=== PATIENT | male | born 1960 | race African-American/Black ===

== ENCOUNTER 2017-09-09 18:50 | Emergency (ER) | payer MEDICARE, MEDICAID ==
[2017-09-09 21:06] LABS: ABS Basophils 0 10^3/ul (0-0.2); ABS Eosinophils 0.2 10^3/ul (0-0.6); ABS Lymphocytes 2.7 10^3/ul (1.0-4.8); ABS Monocytes 0.5 10^3/ul (0-0.8); ABS Neutrophils 2.4 10^3/ul (1.5-7.7); ABS Nucleated RBC 0 10^3/ul; Eosinophil % 4.1 % (0-6); Hematocrit 30 % (42-52); Hemoglobin 9.8 g/dl (14.0-18.0); Mean Corpuscular HGB Conc 32 g/dl (31-36); Mean Corpuscular Hemoglobin 30 pg (27-31); Mean Corpuscular Volume 94 fL (80-94); Mean Platelet Volume 7.1 um3 (7.4-10.4); Nucleated Red Blood Cells % 0.1; Platelet Count 271 10^3/ul (150-450); Red Blood Count 3.25 10^6/ul (4.0-5.4); Red Cell Distribution Width 18 % (10.5-15); White Blood Count 5.8 10^3/ul (3.5-10.8)
[2017-09-09 21:18] LABS: EGFR Non-African American 63.4 (>60)
--- NOTE | 2017-09-10 06:40 | ED ---
Lm Will Rebecca, scribed for Bakari Harris MD on 09/09/17 at 2028 . Psychiatric Complaint - HPI Summary HPI Summary: Pt is a 56 y/o M BIBA who presents to ED requesting a MHE. Pt reports that he called EMS because "I'm psychotic" and that he would like a MHE. Denies hallucinations and SIs. Takes Prozac, Trazodone, Lisinopril, and Naproxen. PMHx bipolar disorder and alcoholism. - History Of Current Complaint Chief Complaint: EDSubstanceAbuse Time Seen by Provider: 09/09/17 20:11 Hx Obtained From: Patient Onset/Duration: Still Present Character: Manic - "I'm psychotic" Aggravating Factor(s): Nothing Alleviating Factor(s): Nothing Associated Signs And Symptoms: Positive: Negative Related History: Positive For: Prior Psychiatric Issues - Bipolar Has Suicidal: Denies: Thoughts Has Homicidal: Denies: Thoughts - Allergies/Home Medications Allergies/Adverse Reactions: Allergies Allergy/AdvReac Type Severity Reaction Status Date / Time allopurinol Allergy See Comment Verified 09/09/17 20:09 Home Medications: Home Medications Unobtainable [Unobtainable] 09/10/17 [History Confirmed 09/10/17] PMH/Surg Hx/FS Hx/Imm Hx Cardiovascular History: Reports: Hx Hypertension Musculoskeletal History: Reports: Hx Gout Psychiatric History: Reports: Hx Bipolar Disorder, Hx Substance Abuse - alcohol Infectious Disease History: No Infectious Disease History: Denies: Traveled Outside the [place] in Last 30 Days - Family History Known Family History: Positive: Unknown - Pt does not know FHx - Social History Alcohol Use: Daily Alcohol Amount: beer/vodka Substance Use Type: Reports: Cocaine, Marijuana Substance Use Comment - Amount & Last Used: marijuana daily, cocaine occ Smoking Status (MU): Light Every Day Tobacco Smoker Review of Systems Negative: Fever Neurological: Other - NEGATIVE: Hallucinations Positive: Other - "psychotic"; NEGATIVE: SIs All Other Systems Reviewed And Are Negative: Yes Physical Exam - Summary Physical Exam Summary: VITAL SIGNS: Reviewed. GENERAL: ~Patient is a well-developed and nourished male who is lying comfortable in the stretcher. Patient is not in any acute respiratory distress. He has alcohol on his breath. HEAD AND FACE: No signs of trauma. No ecchymosis, hematomas or skull depressions. No sinus tenderness. EYES: PERRLA, EOMI x 2, No injected conjunctiva, no nystagmus. EARS: Hearing grossly intact. Ear canals and tympanic membranes are within normal limits. MOUTH: Oropharynx within normal limits. NECK: Supple, trachea is midline, no adenopathy, no JVD, no carotid bruit, no c- spine tenderness, neck with full ROM. CHEST: Symmetric, no tenderness at palpation LUNGS: Clear to auscultation bilaterally. No wheezing or crackles. CVS: Regular rate and rhythm, S1 and S2 present, no murmurs or gallops appreciated. EXTREMITIES: FROM in all major joints, no edema, no cyanosis or clubbing. NEURO: Alert and oriented x 3. No acute neurological deficits. Speech is normal and follows commands. SKIN: Dry and warm Triage Information Reviewed: Yes Vital Signs On Initial Exam: Initial Vitals Temp Pulse Resp BP Pulse Ox 97.8 F 89 16 145/88 100 09/09/17 19:15 09/09/17 19:15 09/09/17 19:15 09/09/17 19:15 09/09/17 19:15 Vital Signs Reviewed: Yes Diagnostics - Vital Signs Vital Signs Temp Pulse Resp BP Pulse Ox 09/09/17 19:15 97.8 F 89 16 145/88 100 - Laboratory Result Diagrams: 09/09/17 20:53 09/09/17 20:53 Lab Statement: Any lab studies that have been ordered have been reviewed, and results considered in the medical decision making process. Course/Dx - Course Assessment/Plan: Pt is a 56 y/o M BIBA who presents to ED requesting a MHE. Pt reports that he called EMS because "I'm psychotic" and that he would like a MHE. Denies hallucinations and SIs. Takes Prozac, Trazodone, Lisinopril, and Naproxen. PMHx bipolar disorder and alcoholism. Blood work was done with results including a serum alcohol of 327. Medically cleared for MHE at 0608. Pt will be signed out to Dr. Salinas, pending dispo, awaiting MHE. Allergy noted. - Differential Dx/Clinical Impression Provider Diagnosis: Alcohol intoxication Discharge - Sign-Out/Discharge Documenting (check all that apply): Sign-Out Patient Signing out patient TO: Drew Salinas - E - Discharge Plan Referrals: No Primary Care Phys,NOPCP [Primary Care Provider] - The documentation as recorded by the Lm christensen Rebecca accurately reflects the service I personally performed and the decisions made by , Bakari Harris MD.
[2017-09-10 08:55] VITALS: BP 159/76
== END 2017-09-10 09:35 | disposition home or self-care (01) ==
LOC: ED 18:50
DX: F10.129 Alcohol abuse with intoxication, unspecified (principal); F17.210 Nicotine dependence, cigarettes, uncomplicated; F31.9 Bipolar disorder, unspecified; I10 Essential (primary) hypertension
CPT/HCPCS: 36415; 80053; 80320; 80329; 84443; 85025; 99283; G0480

== ENCOUNTER 2017-09-19 00:01 | Emergency (ER) | payer MEDICAID, MEDICARE, OTHER ==
[2017-09-19] MEDS ORDERED: Famotidine TAB* 20 MG PO ONE (00:14)
[2017-09-19] MEDS ORDERED: Pantoprazole IV* 40 MG IV ONE (00:14)
[2017-09-19] MEDS ORDERED: Al Hydrox/Mg Hydrox/Simet LIQ* 30 ML UDC PO ONE (00:14)
[2017-09-19] MEDS ORDERED: NS 0.9% 1000 ML* 1,000 ML IV ONE (00:35)
[2017-09-19] MEDS ORDERED: Ondansetron ODT TAB* 4 MG PO ONE (00:36)
--- NOTE | 2017-09-19 00:43 | ED ---
GI/ HPI - HPI Summary HPI Summary: 56-year-old male presents with vomiting today. He states he felt off for the past 18 hours. He states it started after eating [place] from [place]. He denies any diarrhea. He admits to generalized abdominal pain. He's never had this before. He denies any chest pressures or shortness of breath. No sore throat. No headache. No dizziness. Patient drank half bottle of vodka today. History of alcoholism. Patient claims that has had appendix and gallbladder removed. no pain with Urination. Patient states that vomited blood once. he brought his "bag full of blood with him" which in relate has trace amount of streak of pink tinge to it with watery vomit. he states this was the only episode of bloody vomit is what he brought. he denies any cough or coughing up blood. - History of Current Complaint Chief Complaint: EDGIBleed Time Seen by Provider: 09/19/17 00:28 Stated Complaint: VOMITING Pain Intensity: 0 - Allergy/Home Medications Allergies/Adverse Reactions: Allergies Allergy/AdvReac Type Severity Reaction Status Date / Time allopurinol Allergy See Comment Verified 09/09/17 20:09 PMH/Surg Hx/FS Hx/Imm Hx Endocrine/Hematology History: Denies: Hx Anticoagulant Therapy Cardiovascular History: Reports: Hx Hypertension Musculoskeletal History: Reports: Hx Gout Psychiatric History: Reports: Hx Bipolar Disorder, Hx Substance Abuse - alcohol Denies: Hx Eating Disorder, Hx of Violent Episodes Against Others Infectious Disease History: No Infectious Disease History: Denies: Traveled Outside the [place] in Last 30 Days - Family History Known Family History: Positive: None, Unknown - Pt does not know FHx, Other - Social History Alcohol Use: Daily Alcohol Amount: beer/vodka Substance Use Type: Reports: Cocaine, Marijuana Substance Use Comment - Amount & Last Used: marijuana daily, cocaine occ Smoking Status (MU): Light Every Day Tobacco Smoker Review of Systems Negative: Fever Negative: Chest Pain Negative: Shortness Of Breath Positive: Abdominal Pain, Vomiting, Nausea. Negative: Diarrhea All Other Systems Reviewed And Are Negative: Yes Physical Exam Triage Information Reviewed: Yes Vital Signs On Initial Exam: Initial Vitals Temp Pulse Resp BP Pulse Ox 98.3 F 94 18 140/75 98 09/19/17 00:11 09/19/17 00:11 09/19/17 00:11 09/19/17 00:11 09/19/17 00:11 Vital Signs Reviewed: Yes Appearance: Positive: Well-Appearing Skin: Positive: Warm, Dry Head/Face: Positive: Normal Head/Face Inspection Eyes: Positive: Normal, EOMI, CECILIA, Conjunctiva Clear ENT: Positive: Normal ENT inspection, Pharynx normal, TMs normal Respiratory/Lung Sounds: Positive: Clear to Auscultation, Breath Sounds Present Cardiovascular: Positive: Normal, RRR Abdomen Description: Positive: Nontender, Soft Bowel Sounds: Positive: Present Musculoskeletal: Positive: Normal Neurological: Positive: Normal Psychiatric: Positive: Normal Diagnostics - Vital Signs Vital Signs Temp Pulse Resp BP Pulse Ox 09/19/17 00:15 92 140/75 98 09/19/17 00:11 98.3 F 94 18 140/75 98 - Laboratory Result Diagrams: 09/19/17 00:22 09/19/17 00:22 Lab Statement: Any lab studies that have been ordered have been reviewed, and results considered in the medical decision making process. GIGU Course/Dx - Course Course Of Treatment: 56-year-old male presents with vomiting today. He states he felt off for the past 18 hours. He states it started after eating chicken from [place]. He denies any diarrhea. He admits to generalized abdominal pain. He's never had this before. He denies any chest pressures or shortness of breath. No sore throat. No headache. No dizziness. Patient drank half bottle of vodka today. History of alcoholism. Patient claims that has had appendix and gallbladder removed. no pain with Urination. Patient states that vomited blood once. he brought his "bag full of blood with him" which in relate has trace amount of streak of pink tinge to it with watery vomit. he states this was the only episode of bloody vomit is what he brought. he denies any cough or coughing up blood. on exam nontender abdomen. lungs CTA. wbc normal. h/h is same as previous. lipase normal. was only trace amount of blood and vitals stable so will send home. gave does of protonix will send script for such. patient understand and agrees with plan. - Diagnoses Differential Diagnoses - Male: Esophagitis/Gastritis, Gastritis, Gastroenteritis (Viral) Provider Diagnoses: EtOH dependence, Hematemesis Discharge - Sign-Out/Discharge Documenting (check all that apply): Discharge/Admit/Transfer - Discharge Plan Condition: Good Disposition: HOME Patient Education Materials: Hematemesis (ED), Alcohol Dependence (ED) Referrals: [facility] [place] [facility] [Outside] Additional Instructions: Establish care with primary Take omeprazole daily Take maalox every 6 hours as needed for epigastric pain Return to ED if develop any new or worsening symptoms - Billing Disposition and Condition Condition: GOOD Disposition: Home
[2017-09-19 00:46] LABS: ABS Basophils 0.1 10^3/ul (0-0.2); ABS Eosinophils 0.1 10^3/ul (0-0.6); ABS Lymphocytes 1.8 10^3/ul (1.0-4.8); ABS Monocytes 0.5 10^3/ul (0-0.8); ABS Neutrophils 2.4 10^3/ul (1.5-7.7); ABS Nucleated RBC 0 10^3/ul; Eosinophil % 2.9 % (0-6); Hematocrit 30 % (42-52); Hemoglobin 9.8 g/dl (14.0-18.0); Lymphocyte % 36.6 % (25-47); Mean Corpuscular HGB Conc 33 g/dl (31-36); Mean Corpuscular Hemoglobin 31 pg (27-31); Mean Corpuscular Volume 94 fL (80-94); Mean Platelet Volume 7.2 um3 (7.4-10.4); Nucleated Red Blood Cells % 0.2; Platelet Count 245 10^3/ul (150-450); Red Blood Count 3.18 10^6/ul (4.00-5.40); Red Cell Distribution Width 19 % (10.5-15); White Blood Count 4.9 10^3/ul (3.5-10.8)
[2017-09-19 00:47] LABS: EGFR Non-African American 62.2 (>60)
[2017-09-19 01:06] LABS: INR 0.83 (0.77-1.02)
[2017-09-19 03:07] VITALS: BP 146/83
== END 2017-09-19 03:07 | disposition home or self-care (01) ==
LOC: ED 00:01
DX: K92.0 Hematemesis (principal); F10.20 Alcohol dependence, uncomplicated; I10 Essential (primary) hypertension; M10.9 Gout, unspecified; F31.9 Bipolar disorder, unspecified; Z88.8 Allergy status to other drugs, medicaments and biological substances; F17.200 Nicotine dependence, unspecified, uncomplicated
CPT/HCPCS: 36415; 80053; 83690; 85025; 85610; 85730; 86140; 96374; 99283; A9270-GY

== ENCOUNTER 2017-09-29 18:39 | Emergency (ER) | payer OTHER ==
[2017-09-29] MEDS ORDERED: Ketorolac INJ* 60 MG/2 ML VIAL IM ONE (19:23)
[2017-09-29] MEDS ORDERED: Indomethacin CAP* 25 MG CAP PO ONE (19:33)
[2017-09-29 20:06] VITALS: BP 141/91
--- NOTE | 2017-09-29 20:10 | ED ---
Lm Will Rebecca, scribed for Tej Nowak on 09/29/17 at 1930 . Upper Extremity Pain - HPI Summary HPI Summary: Pt is a 56 y/o M who presents to ED c/o L wrist pain which was moderate, ranked 7/10 on triage. No known injury. Sx aggravated by movement, unchanged by Ibuprofen and Tylenol. Also states that he needs a refill of his Lisinopril 25 mg. PMHx gout which he states he currently has in his R knee. - History of Current Complaint Chief Complaint: EDGeneral Stated Complaint: LT WRIST INJURY Time Seen by Provider: 09/29/17 19:18 Hx Obtained From: Patient Onset/Duration: Still Present Severity Currently: Moderate - 7/10 Pain Location: Wrist - Left Aggravating Factor(s): Movement Alleviating Factor(s): Nothing Associated Signs & Symptoms: Positive: Other - Gout in R knee per pt - Allergies/Home Medications Allergies/Adverse Reactions: Allergies Allergy/AdvReac Type Severity Reaction Status Date / Time allopurinol Allergy See Comment Verified 09/29/17 18:47 Home Medications: Home Medications Flexeril 10 MG TAB* 40 mg PO DAILY 09/29/17 [History Confirmed 09/29/17] Lisinopril TAB* [Prinivil TAB 10 MG*] 20 mg PO DAILY 09/29/17 [History Confirmed 09/29/17] traZODone TAB* [Desyrel TAB*] 100 mg PO BEDTIME 09/29/17 [History Confirmed ] PMH/Surg Hx/FS Hx/Imm Hx Endocrine/Hematology History: Denies: Hx Anticoagulant Therapy Cardiovascular History: Reports: Hx Hypertension Musculoskeletal History: Reports: Hx Gout Psychiatric History: Reports: Hx Bipolar Disorder, Hx Substance Abuse - alcohol Denies: Hx Eating Disorder, Hx of Violent Episodes Against Others Infectious Disease History: Unable to Obtain/Confirm Infectious Disease History: Denies: Traveled Outside the [place] in Last 30 Days - Family History Known Family History: Positive: Unknown - Pt does not know FHx - Social History Alcohol Use: Daily Alcohol Amount: beer/vodka Substance Use Type: Reports: Cocaine, Marijuana Substance Use Comment - Amount & Last Used: marijuana daily, cocaine occ Smoking Status (MU): Light Every Day Tobacco Smoker Review of Systems Positive: Other - Ran out of HTN medication Positive: Arthralgia - L wrist pain Positive: Other - Gout in R knee, per pt All Other Systems Reviewed And Are Negative: Yes Physical Exam - Summary Physical Exam Summary: Appearance: Well appearing, no pain distress Skin: warm, dry, reflects adequate perfusion Head/face: normal Eyes: EOMI, CECILIA ENT: normal Neck: supple, non-tender Respiratory: CTA, breath sounds present Cardiovascular: RRR, pulses symmetrical Abdomen: non-tender, soft Bowel: present Musculoskeletal: mild tenderness over the left wrist, strength/ROM intact Neuro: normal, sensory motor intact, A&Ox3 Triage Information Reviewed: Yes Vital Signs On Initial Exam: Initial Vitals Temp Pulse Resp BP Pulse Ox 98.8 F 110 18 134/68 99 09/29/17 18:43 09/29/17 18:43 09/29/17 18:43 09/29/17 18:43 09/29/17 18:43 Vital Signs Reviewed: Yes Diagnostics - Vital Signs Vital Signs Temp Pulse Resp BP Pulse Ox 09/29/17 18:43 98.8 F 110 18 134/68 99 - Laboratory Lab Statement: Any lab studies that have been ordered have been reviewed, and results considered in the medical decision making process. Course/Dx - Course Assessment/Plan: Pt is a 56 y/o M who presents to ED c/o L wrist pain which was moderate, ranked 7/10 on triage. No known injury. Sx aggravated by movement, unchanged by Ibuprofen and Tylenol. Also states that he needs a refill of his Lisinopril 25 mg. PMHx gout which he states he currently has in his R knee. In the ED course, pt was given Toradol and Indocin. Pt does not want any work up including an XR. Wants to be discharged. He will be D/C with Dx of wrist pain and HTN with Rx for Indocin and Prinivil. He understands and agrees. Allergy noted. - Diagnoses Provider Diagnoses: Wrist pain, Hypertension Discharge - Sign-Out/Discharge Documenting (check all that apply): Discharge/Admit/Transfer - Discharge - Discharge Plan Condition: Stable Disposition: HOME Prescriptions: Indomethacin CAP* [Indocin CAP*] 50 mg PO TID PRN #15 cap MDD 3 PRN Reason: Pain Lisinopril [Prinivil TAB 20 mg] 20 mg PO DAILY 30 Days #1 tab Patient Education Materials: Hypertension (ED), Arthralgia (ED) Referrals: No Primary Care Phys,NOPCP [Primary Care Provider] - [facility] [place] [facility] [Outside] - 3 Days Additional Instructions: RETURN TO ED FOR ANY NEW OR WORSENING SYMPTOMS. The documentation as recorded by the Lm christensen Rebecca accurately reflects the service I personally performed and the decisions made by Eliu caba Emmanuel.
== END 2017-09-29 20:05 | disposition home or self-care (01) ==
LOC: ED 18:39
DX: M25.532 Pain in left wrist (principal); I10 Essential (primary) hypertension; F31.9 Bipolar disorder, unspecified; Z72.0 Tobacco use; M10.9 Gout, unspecified
CPT/HCPCS: 96372; 99282; A9270-GY

== ENCOUNTER 2017-10-01 20:43 | Emergency (ER) | payer OTHER ==
[2017-10-01] MEDS ORDERED: Ibuprofen TAB* 800 MG PO ONE (21:29)
--- NOTE | 2017-10-02 00:12 | ED ---
Blake Will Jade, scribed for Bakari Harris MD on 10/01/17 at 2106 . Substance Abuse/Use - HPI Summary HPI Summary: Pt is a 56 y/o male BIBA c/o hand swelling. As per EMS, pt called saying that he needed help. He states that his left hand will not move due to swelling for 3 days. Pt states he has gout, but denies any rheumatoid arthritis. Pt is well known to the ER staff for frequent visits for alcohol intoxication. He states he has only had 2 beers today. Pt currently takes Naproxen. - History Of Current Complaint Chief Complaint: EDSubstanceAbuse Stated Complaint: AMS Time Seen by Provider: 10/01/17 20:53 Hx Obtained From: Patient, EMS Ingestion History: Type/Name Of Drug - Alcohol Timing Of Abuse: Daily Aggravating Factor(s): Nothing Alleviating Factor(s): Nothing Associated Signs And Symptoms: Other: - Swollen hands Related Hx: Prior Drug Abuse Counseling/Admission - Allergies/Home Medications Allergies/Adverse Reactions: Allergies Allergy/AdvReac Type Severity Reaction Status Date / Time allopurinol Allergy See Comment Verified 10/01/17 21:33 PMH/Surg Hx/FS Hx/Imm Hx Endocrine/Hematology History: Denies: Hx Anticoagulant Therapy Cardiovascular History: Reports: Hx Hypertension Musculoskeletal History: Reports: Hx Gout Psychiatric History: Reports: Hx Depression, Hx Bipolar Disorder, Hx Substance Abuse - alcohol Denies: Hx Eating Disorder, Hx of Violent Episodes Against Others Infectious Disease History: No Infectious Disease History: Denies: Traveled Outside the [place] in Last 30 Days - Family History Known Family History: Positive: Unknown - Does not know - Social History Alcohol Use: Daily Alcohol Amount: beer/vodka Substance Use Type: Reports: Cocaine, Marijuana Substance Use Comment - Amount & Last Used: marijuana daily, cocaine occ Smoking Status (MU): Light Every Day Tobacco Smoker Review of Systems Negative: Fever Positive: Edema - Hand swelling All Other Systems Reviewed And Are Negative: Yes Physical Exam - Summary Physical Exam Summary: VITAL SIGNS: Reviewed. GENERAL: Patient is a well-developed and nourished MALE who is lying comfortable in the stretcher. Patient is not in any acute respiratory distress. Pt is intoxicated, and there is alcohol on his breath. HEAD AND FACE: No signs of trauma. No ecchymosis, hematomas or skull depressions. No sinus tenderness. EYES: PERRLA, EOMI x 2, No injected conjunctiva, no nystagmus. EARS: Hearing grossly intact. Ear canals and tympanic membranes are within normal limits. MOUTH: Oropharynx within normal limits. NECK: Supple, trachea is midline, no adenopathy, no JVD, no carotid bruit, no c- spine tenderness, neck with full ROM. CHEST: Symmetric, no tenderness at palpation LUNGS: Clear to auscultation bilaterally. No wheezing or crackles. CVS: Regular rate and rhythm, S1 and S2 present, no murmurs or gallops appreciated. ABDOMEN: Soft, non-tender. No signs of distention. No rebound no guarding, and no masses palpated. Bowel sounds are normal. EXTREMITIES: FROM in all major joints, no edema, no cyanosis or clubbing. NEURO: Alert and oriented x 3. No acute neurological deficits. Speech is normal and follows commands. SKIN: Dry and warm Triage Information Reviewed: Yes Vital Signs On Initial Exam: Initial Vitals Temp Pulse Resp BP Pulse Ox 98.4 F 83 18 133/75 99 10/01/17 20:48 10/01/17 20:48 10/01/17 20:48 10/01/17 20:48 10/01/17 20:48 Vital Signs Reviewed: Yes Diagnostics - Vital Signs Vital Signs Temp Pulse Resp BP Pulse Ox 10/01/17 20:48 98.4 F 83 18 133/75 99 - Laboratory Lab Statement: Any lab studies that have been ordered have been reviewed, and results considered in the medical decision making process. Course/Dx - Course Course Of Treatment: Pt is a 56 y/o male BIBA c/o hand swelling, and states that his left hand will not move due to swelling for 3 days. Pt is well known to the ER staff for frequent visits for alcohol intoxication. A physical exam revealed pt intoxicated, and there is alcohol on his breath. Final dx is alcohol intoxication. Pt found somebody to take him home, and is discharged. He is agreeable with this plan. - Diagnoses Provider Diagnoses: Alcohol intoxication Discharge - Sign-Out/Discharge Documenting (check all that apply): Discharge/Admit/Transfer - Discharge - Discharge Plan Condition: Stable Disposition: HOME Patient Education Materials: Alcohol Intoxication (ED) Referrals: [facility] [place]Outside] - 2 Days Additional Instructions: RETURN TO THE EMERGENCY DEPARTMENT FOR CHANGING OR WORSENING SYMPTOMS The documentation as recorded by the Blake christensen Jade accurately reflects the service I personally performed and the decisions made by me, Bakari Harris MD.
[2017-10-02 00:28] VITALS: BP 142/79
== END 2017-10-02 00:26 | disposition home or self-care (01) ==
LOC: ED 20:43
DX: F10.129 Alcohol abuse with intoxication, unspecified (principal); M10.9 Gout, unspecified; Z88.8 Allergy status to other drugs, medicaments and biological substances
CPT/HCPCS: 36415; 80320; 99284; A9270-GY; G0480

== ENCOUNTER 2017-10-16 02:39 | Emergency (ER) | payer OTHER, MEDICAID ==
--- NOTE | 2017-10-16 03:01 | ED ---
Upper Extremity Pain - HPI Summary HPI Summary: This is amparo Juarez documenting for attending physician Rajan Simmons M.D. Pt is a 56 y/o M BIBA due to UE pain. He states he was watching TV tonight, "doing nothing" and drinking alcohol. He reports onset of right arm pain which eventually went away. He states he has Hx of pain in this arm. However, he began to experience left arm pain afterwards. This concerned him, which prompted EMS call. Pain is rated 5/10 on triage. He denies chest pain but notes some abdominal pain. He denies Hx of MA, has Hx of HTN. Father had diabetes. - History of Current Complaint Stated Complaint: BILATERAL ARM PAIN Time Seen by Provider: 10/16/17 02:59 Hx Obtained From: Patient Mechanism Of Injury: Other - "doing nothing" Onset/Duration: Started Hours Ago - sometime tonight, time not noted by Pt Severity Currently: Moderate - 5/10 Pain Location: Arm - right arm pain, which he states resolved, and left arm pain , Other: - abdominal pain noted Aggravating Factor(s): Nothing Alleviating Factor(s): Nothing - Allergies/Home Medications Allergies/Adverse Reactions: Allergies Allergy/AdvReac Type Severity Reaction Status Date / Time allopurinol Allergy See Comment Verified 10/01/17 21:33 PMH/Surg Hx/FS Hx/Imm Hx Endocrine/Hematology History: Denies: Hx Anticoagulant Therapy Cardiovascular History: Reports: Hx Hypertension Musculoskeletal History: Reports: Hx Gout Psychiatric History: Reports: Hx Depression, Hx Bipolar Disorder, Hx Substance Abuse - alcohol Denies: Hx Eating Disorder, Hx of Violent Episodes Against Others - Family History Known Family History: Positive: Diabetes - father - Social History Alcohol Use: Daily Alcohol Amount: beer/vodka Substance Use Type: Reports: Cocaine, Marijuana Substance Use Comment - Amount & Last Used: marijuana daily, cocaine occ Smoking Status (MU): Light Every Day Tobacco Smoker Review of Systems Negative: Chest Pain Positive: Abdominal Pain Positive: Other - right arm pain which resolved, left arm pain All Other Systems Reviewed And Are Negative: Yes Physical Exam - Summary Physical Exam Summary: Appearance: Well-appearing, Well-nourished, lying in bed comfortably; intoxicated Skin: Warm, dry, no obvious rash Eyes: sclera anicteric, no conjunctival pallor ENT: mucous membranes moist, pharynx appears normal Neck: Supple, nontender Respiratory: Clear to auscultation, no signs of respiratory distress Cardiovascular: Normal S1, S2. No murmurs. Normal distal pulses in tibial and radial bilaterally. Abdomen: Soft, nontender, normal active bowel sounds present Musculoskeletal: Normal, Strength/ROM Intact Neurological: A&Ox3, awake and alert, mentation is normal, speech is fluent and appropriate Psychiatric: affect is normal, does not appear anxious or depressed Triage Information Reviewed: Yes Vital Signs On Initial Exam: Initial Vitals Temp Pulse Resp BP Pulse Ox 97.6 F 85 18 127/88 97 10/16/17 03:42 10/16/17 03:42 10/16/17 03:42 10/16/17 03:42 10/16/17 03:42 Vital Signs Reviewed: Yes Diagnostics - Laboratory Result Diagrams: 10/16/17 03:23 10/16/17 03:23 Lab Statement: Any lab studies that have been ordered have been reviewed, and results considered in the medical decision making process. - EKG 0331 Cardiac Rate: NL - rate of 86 BPM EKG Rhythm: Sinus Rhythm EKG Interpretation: Normal EKG Re-Evaluation - Re-Evaluation First Eval Re-Evaluation Time: 04:40 Comment: Tests and results discussed with Pt, informed they would be likely discharged pending troponin test. Course/Dx - Diagnoses Differential Diagnosis/HQI/PQRI: Positive: Other - ACS Provider Diagnoses: Arm pain, Alcohol intoxication Discharge - Sign-Out/Discharge Documenting (check all that apply): Patient Departure - Discharge Plan Condition: Good Disposition: HOME Patient Education Materials: Chest Pain (ED), Alcohol Intoxication (ED) Referrals: [facility] [Outside] [facility] [place] [facility] [Outside] - 4 Days (PLEASE F/U IN 3-5 DAYS) Additional Instructions: RETURN FOR RETURNING/WORSENING SYMPTOMS - Billing Disposition and Condition Condition: GOOD Disposition: Home
[2017-10-16 03:36] LABS: Hematocrit 31 % (42-52); Hemoglobin 10.3 g/dl (14.0-18.0); Mean Corpuscular HGB Conc 33 g/dl (31-36); Mean Corpuscular Hemoglobin 31 pg (27-31); Mean Corpuscular Volume 95 fL (80-94); Mean Platelet Volume 7.2 um3 (7.4-10.4); Platelet Count 263 10^3/ul (150-450); Red Blood Count 3.28 10^6/ul (4.00-5.40); Red Cell Distribution Width 19 % (10.5-15); White Blood Count 4.5 10^3/ul (3.5-10.8)
[2017-10-16 03:44] LABS: ABS Basophils 0.1 10^3/ul (0-0.2); ABS Eosinophils 0.1 10^3/ul (0-0.6); ABS Monocytes 0.5 10^3/ul (0-0.8); ABS Neutrophils 1.8 10^3/ul (1.5-7.7)
[2017-10-16 03:46] LABS: ABS Nucleated RBC 0 10^3/ul; EGFR Non-African American 62.2 (>60)
[2017-10-16 04:07] LABS: Eosinophil % 2.5 % (0-6); Lymphocyte % 43.9 % (25-47); Nucleated Red Blood Cells % 0
--- NOTE | 2017-10-16 10:12 | ED ---
Progress - Progress Note Progress Note: This is amparo Ordoñez documenting for attending physician Rajan Landon M.D. Pt signed out by Dr. Simmons pending repeat Trop. Re-Evaluation - Re-Evaluation First Eval Re-Evaluation Time: 04:40 Comment: Tests and results discussed with Pt, informed they would be likely discharged pending troponin test. Course/Dx - Course Course Of Treatment: dx: CP and alcohol intoxication. Discharge - Sign-Out/Discharge Documenting (check all that apply): Patient Departure - Discharge Plan Condition: Good Disposition: HOME Patient Education Materials: Alcohol Intoxication (ED), Chest Pain (ED) Referrals: [facility] [Outside] [facility] [place] [facility] [Outside] - 4 Days (PLEASE F/U IN 3-5 DAYS) Additional Instructions: RETURN FOR RETURNING/WORSENING SYMPTOMS
[2017-10-16 10:23] VITALS: BP 126/78
== END 2017-10-16 10:22 | disposition home or self-care (01) ==
LOC: ED 02:39
DX: M79.601 Pain in right arm (principal); F10.129 Alcohol abuse with intoxication, unspecified; I10 Essential (primary) hypertension; Z88.8 Allergy status to other drugs, medicaments and biological substances; M10.9 Gout, unspecified; F31.9 Bipolar disorder, unspecified; Z83.3 Family history of diabetes mellitus; F17.200 Nicotine dependence, unspecified, uncomplicated
CPT/HCPCS: 36415; 80053; 80320; 84484; 85025; 93005; 99284; G0480

== ENCOUNTER 2017-11-10 06:01 | Emergency (ER) | payer OTHER, MEDICAID ==
--- OUTSIDE RECORDS SUMMARY | 2017-11-10 06:31 | XMS REPORT ---
:1960 External Reference #:[id number] Author Organization [email or web address] Address [address] [place] [address] Phone [phone] Care Team Providers Name Role Phone Patient's Choice Primary Care Physician Unavailable Payers Type Date Identification Numbers Payment Provider Subscriber Medicare Primary Policy Number: [id number] Medicare Jose Rodrigues PayID: [id number] [address] [place] [address] [employer] B Policy Number: [id number] Medicaid Jose Rodrigues Group Name: 1 1 [address] PayID: [id number] [place] [address] Problems Date Description Provider Status Onset: 10/19/2017 Screening for malignant neoplasm of colon Jhon Talley MD Active Onset: 10/19/2017 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 Jhon Talley MD Active Onset: 10/19/2017 Gout Jhon Talley MD Active Onset: 10/19/2017 Essential hypertension Jhon Talley MD Active Onset: 10/19/2017 Bipolar disorder Jhon Talley MD Active Onset: 10/19/2017 Alcohol-induced psychosis Jhon Talley MD Active Onset: 10/19/2017 Pain in limb Jhon Talley MD Active Social History Type Date Description Comments Smoking Light tobacco smoker (10 or fewer cigarettes/day) Allergies, Adverse Reactions, Alerts Date Description Reaction Status Severity Comments 10/17/2017 Allopurinol active Medications Medication Date Status Form Strength Qnty SIG Indications Ordering Provider Trazodone HCL Active Tablets 100mg 1 tablet at Unknown /0000 bedtime Lisinopril 00 Active Tablets 20mg 30tab 1 by mouth Jhon /0000 s every day MD Mayank Indomethacin Active Capsules 50mg 1 capsule Unknown /0000 by mouth three times a day as needed Maalox Plus Active Suspension 400-400-4 30 Unknown /0000 0mg/5ML milliliters every 6 hours as needed indigestion , Folic Acid 00 Active Tablets 1mg 1 by mouth Unknown /0000 every day Famotidine 00 Active Tablets 20mg 1 by mouth Unknown /0000 every day Omeprazole Hx Capsules DR 20mg 1 by mouth Unknown /0000 every day - 10/18 Cyclobenzaprine Hx Tablets 10mg 1 tablet by Unknown HCL /0000 mouth q6 - hours 10/18 Vital Signs Date Vital Result Comment 10/19/2017 Height 71 inches 5'11" Weight 162.00 lb Heart Rate 80 /min BP Systolic 143 mmHg Lue average adult cuff BP Diastolic 71 mmHg Lue average adult cuff BP Systolic Sitting 134 mmHg Rue average cuff BP Diastolic Sitting 72 mmHg Rue average cuff Respiratory Rate 16 /min Body Temperature 98.5 F Pain Level 0 O2 % BldC Oximetry 100 % BMI (Body Mass Index) 22.6 kg/m2 Results Description No Information Procedures Description No Information Encounters Type Date Location Provider CPT E/M Dx Office Visit 10/19/2017 9:30a [facility] [place] [address] F10.19 Of [employer] F31.9 I10 M10.9 Z12.11 Plan of Care 10/19/2017 - Jhon Talley MDF10.19 Alcohol abuse with unspecified alcohol-induced disorderComments:Please follow up at [facility] [place] next sunday for Alcohol Addiction therapy. Otherwise a local resource is: [facility] at [address] [place] [id number]. .F31.9 Bipolar disorder, unspecifiedComments:[facility] [place] [address] [facility] [address]. I10 Essential (primary) hypertensionComments:Please continue lisinopril 20mg daily.M10.9 Gout, [id number] Encounter for screening for malignant neoplasm of colonComments:We are giving you a referral to Dr. Montero to get a screening colonoscpy.
--- OUTSIDE RECORDS SUMMARY | 2017-11-10 06:31 | XMS REPORT ---
:1960 External Reference #:[id number] Author Organization [employer] Address [address] [place] [address] Phone [phone] Care Team Providers Name Role Phone Patient's Choice Primary Care Physician Unavailable Payers Type Date Identification Numbers Payment Provider Subscriber Medicare Primary Policy Number: [id number] Medicare Jose Rodrigues PayID: [id number] [address] [place] [address] [employer] Part B Policy Number: [id number] Medicaid Jose Rodrigues Group Name: 1 1 [address] PayID: [id number] [place] [address] Problems Date Description Provider Status Onset: 10/19/2017 [...] CPT E/M Dx Office Visit 10/19/2017 9:30a [facility] [place] [address] F10.19 Of [facility] F31.9 I10 M10.9 Z12.11 Plan of Care Future Appointment(s):12/20/2017 9:30 am - Jhon Talley MD at [facility]10/19/2017 - Jhon Talley MDF10.19 Alcohol abuse with unspecified alcohol-induced disorderComments:Please [place] [facility] [place] for Alcohol Addiction therapy. Otherwise a local resource is: [facility] at [address] [place] [id number]. .F31.9 Bipolar disorder, unspecifiedComments:[facility] [place] [address] [facility] [address]. I10 Essential (primary) hypertensionComments:Please continue lisinopril 20mg daily.M10.9 Gout, [id number] Encounter for screening for malignant neoplasm of colonComments:We are giving you a referral to Dr. Montero to get a screening colonoscpy.
--- NOTE | 2017-11-10 07:09 | ED ---
Abdominal Pain/Male - HPI Summary HPI Summary: Patient presents with right-sided abdominal pain over the past couple of days. He appears intoxicated. He is convoluted in his history however he does essentially report nausea with vomiting 2 times a day and pain is worse when he eats or drinks. History of pancreatitis as well as GERD, possibly with ulcer however he is not sure. Denies hematochezia as well as hematemesis. States his emesis is "clear". Reports he does not eat or drink anything upon initially waking. He does have some fluids as the day goes on and consumes one large meal at the end of the day. He takes medication for GERD as well as blood pressure. He's not sure if his GERD medication helps or not. He does not believe he has a hiatal hernia. He does have issues with joint aches and gout from time to time for which she treats with naproxen however he admits he can't take this daily due to his stomach issues. Denies urinary symptoms and reports alternating constipation with diarrhea which has been going on for years. Furthermore he admits to drinking 4 "tall boys, Natty's that are 8%". If he is "feeling good", he'll proceed to the liquor store and drink vodka. He reports there may be something wrong with his liver but nothing specific he's ever been told. - History of Current Complaint Chief Complaint: Carinain Stated Complaint: ABD PAIN Time Seen by Provider: 11/10/17 06:03 Hx Obtained From: Patient Pain Intensity: 5 - Allergies/Home Medications Allergies/Adverse Reactions: Allergies Allergy/AdvReac Type Severity Reaction Status Date / Time allopurinol Allergy See Comment Verified 10/01/17 21:33 PMH/Surg Hx/FS Hx/Imm Hx Previously Healthy: Yes Endocrine/Hematology History: Denies: Hx Anticoagulant Therapy Cardiovascular History: Reports: Hx Hypertension - lisinopril? Respiratory History: Denies: Hx Asthma, Hx Chronic Obstructive Pulmonary Disease (COPD) GI History: Reports: Hx Gastroesophageal Reflux Disease, Hx Ulcer - possibly has had in past, pt unclear Denies: Hx Cirrhosis, Hx Gall Bladder Disease Musculoskeletal History: Reports: Hx Gout Psychiatric History: Reports: Hx Depression, Hx Bipolar Disorder, Hx Substance Abuse - alcohol Denies: Hx Eating Disorder, Hx of Violent Episodes Against Others Infectious Disease History: No Infectious Disease History: Denies: Traveled Outside the US in Last 30 Days - Family History Known Family History: Positive: None, Unknown - Does not know, Diabetes - father , Other - Social History 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 [employer] Lives: Alone Alcohol Use: Daily Alcohol Amount: 100oz of 8% beer/sometimes vodka Substance Use Type: Reports: Cocaine, Marijuana - "sometimes" Substance Use Comment - Amount & Last Used: marijuana daily, cocaine occ Hx Tobacco Use: Yes - pt states he's a someday smoker Smoking Status (MU): Light Every Day Tobacco Smoker Review of Systems Constitutional: Negative Negative: Fever, Chills, Fatigue Cardiovascular: Negative Negative: Palpitations, Chest Pain Respiratory: Negative Negative: Shortness Of Breath, Cough Positive: Abdominal Pain, Vomiting, Nausea Positive: see HPI Musculoskeletal: Other - generalized aches and pains in joints Skin: Negative Negative: Headache Psychological: Normal All Other Systems Reviewed And Are Negative: Yes Physical Exam Triage Information Reviewed: Yes Vital Signs On Initial Exam: Initial Vitals Temp Pulse Resp BP Pulse Ox 99.0 F 94 20 133/112 99 11/10/17 06:17 11/10/17 06:17 11/10/17 06:17 11/10/17 06:17 11/10/17 06:17 Vital Signs Reviewed: Yes Appearance: Positive: Pain Distress - mild, intermittent - reported as 5/10 - admits if he's distracted it's better, when alone it's worse; appears intoxicated, tangential Skin: Positive: Warm, Skin Color Reflects Adequate Perfusion, Dry - no katharine ecchymosis Head/Face: Positive: Normal Head/Face Inspection - atraumatic Eyes: Positive: Normal, EOMI, Conjunctiva Clear - anicteric sclera ENT: Positive: Hearing grossly normal, Pharynx normal - mucosa dry. Negative: Nasal congestion, Nasal drainage Neck: Positive: Supple Respiratory/Lung Sounds: Positive: Clear to Auscultation, Breath Sounds Present Cardiovascular: Positive: RRR, S1, S2. Negative: Murmur, Rub, Leg Edema Left, Leg Edema Right Abdomen Description: Positive: CVA Tenderness (R), Distended, Hepatomegaly - unable to assess as pt reports pain w/ tympany and light touch in RUQ - no pain in LUQ, Other: - Rt side TTP RUQ and RLQ. Negative: CVA Tenderness (L) Musculoskeletal: Positive: Normal, Strength/ROM Intact Neurological: Positive: Normal, Sensory/Motor Intact, Alert, Oriented to Person Place, Time, CN Intact II-III Psychiatric: Positive: Normal Diagnostics - Vital Signs Vital Signs Temp Pulse Resp BP Pulse Ox 11/10/17 06:24 123/90 11/10/17 06:17 99.0 F 94 20 133/112 99 - Laboratory Result Diagrams: 11/10/17 10:11 11/10/17 10:11 Lab Statement: Any lab studies that have been ordered have been reviewed, and results considered in the medical decision making process. Re-Evaluation - Re-Evaluation First Eval Change: Improved - pt's ab pain and mood improved. He went from appearing intoxicated and communicating curtly to appearing more alert and being very polite and appreciative. He received protonix IV for GERD which he reports he has daily and this may have been contributing to his current ab pain sx. Also replaced his magnesium. His H&H are low however FOBT is neg and this appears to be chronic in nature. His U/S reveals cholelithiasis w/o obstruction although amylase was elevated. Pt was PO road tested w/ fluids and sandwhich - he tolerated well. Suspect amylase is elevated from ETOH and he admits to a h/o pancreatitis however pain was not in this area today and resolved w/o pain medication. Advised to f/u w/ PCP re: chronic issues and to monitor cholelithiasis for exacerbation. He is aware of danger s/sx of when to return to ED. Abdominal Pain Fem Course/Dx - Diagnoses Provider Diagnoses: Abdominal pain, Cholelithiasis, GERD (gastroesophageal reflux disease), Anemia Discharge - Sign-Out/Discharge Documenting (check all that apply): Patient Departure - Discharge Plan Condition: Stable Disposition: HOME Patient Education Materials: Gallstones (ED), Gastroesophageal Reflux Disease ( ED), Anemia (ED) Referrals: [facility] [Outside] Additional Instructions: Increase your prilosec from 20mg to 40mg daily for 2 weeks. After this time, follow-up with your PCP. Call today to schedule follow-up. If symptoms worsen in the meantime or you develop bloody vomiting or dark/bloody stools, return to the ED. Additionally, you were found to have stones in your gallbladder. These do not appear to be blocking your ducts today however this could become an issue in the future. Follow-up with your PCP to discuss non-surgical techniques at treatment. If acute symptoms present, return to ED and/or seek consult with general surgery if they are self-limited. Any reduction in alcohol reduction may reduce your heartburn and fatty liver issues. - Billing Disposition and Condition Condition: STABLE Disposition: Home
[2017-11-10] MEDS ORDERED: Thiamine IV* 100 MG, Folic Acid IV* 1 MG, Multiple Vitamin IV ADULT* 10 ML in NS 0.9% 1... IV ONE ×2 (07:44→08:00)
--- NOTE | 2017-11-10 08:24 | RAD ---
INDICATION: Right-sided abdominal pain. COMPARISON: There are no prior studies available for comparison. TECHNIQUE: Multiple real-time images of the right upper quadrant were obtained. FINDINGS: There are gallstones present. No gallbladder wall thickening or pericholecystic fluid is seen. The patient was tender while scanning over the gallbladder. No intrahepatic ductal distention is seen. The common bile duct was not visualized. The liver is enlarged and increased in echogenicity suggestive of fatty infiltration. No focal abnormality is seen. The pancreas is obscured by overlying bowel gas. The right kidney is normal in size without evidence for hydronephrosis. There is a 2.5 x 3.0 cm right renal cyst. IMPRESSION: 1. CHOLELITHIASIS. 2. HEPATOMEGALY AND FINDINGS SUGGESTIVE OF FATTY INFILTRATION.
[2017-11-10 10:27] LABS: ABS Basophils 0 10^3/ul (0-0.2); ABS Eosinophils 0.1 10^3/ul (0-0.6); ABS Lymphocytes 1.6 10^3/ul (1.0-4.8); ABS Monocytes 0.4 10^3/ul (0-0.8); ABS Neutrophils 2.2 10^3/ul (1.5-7.7); ABS Nucleated RBC 0 10^3/ul; Eosinophil % 1.9 % (0-6); Hematocrit 30 % (42-52); Hemoglobin 9.8 g/dl (14.0-18.0); Lymphocyte % 37.2 % (25-47); Mean Corpuscular HGB Conc 33 g/dl (31-36); Mean Corpuscular Hemoglobin 32 pg (27-31); Mean Corpuscular Volume 96 fL (80-94); Nucleated Red Blood Cells % 0.1; Platelet Count 214 10^3/ul (150-450); Red Blood Count 3.08 10^6/ul (4.00-5.40); Red Cell Distribution Width 18 % (10.5-15); White Blood Count 4.3 10^3/ul (3.5-10.8)
[2017-11-10 10:34] LABS: INR 0.92 (0.77-1.02)
[2017-11-10 10:43] LABS: EGFR Non-African American 50.6 (>60)
[2017-11-10] MEDS ORDERED: Magnesium Sulfate 2 GM IV* 2 GM/50 ML BAG IVPB ONE (10:50)
[2017-11-10] MEDS ORDERED: NS 0.9% 1000 ML* 1,000 ML IV ONE (10:59)
[2017-11-10] MEDS ORDERED: Pantoprazole IV* 40 MG IV ONE (11:36)
[2017-11-10 13:49] VITALS: BP 140/95
== END 2017-11-10 13:48 | disposition home or self-care (01) ==
LOC: ED 06:01
DX: K80.20 Calculus of gallbladder without cholecystitis without obstruction (principal); K21.9 Gastro-esophageal reflux disease without esophagitis; D64.9 Anemia, unspecified; R10.11 Right upper quadrant pain; R16.0 Hepatomegaly, not elsewhere classified; Z88.8 Allergy status to other drugs, medicaments and biological substances; Z72.0 Tobacco use
CPT/HCPCS: 36415; 76705; 80053; 80320; 82140; 82150; 82272; 83605; 83690; 83735; 85025; 85610; 85730; 86140; 96365; 96366; 96375; 99283; G0480; J3411; J3475

== ENCOUNTER 2017-11-30 02:06 | Emergency (ER) | payer OTHER, MEDICAID ==
[2017-11-30] MEDS ORDERED: LORazepam TAB(*) 1 MG PO ONE (02:18)
--- NOTE | 2017-11-30 02:20 | ED ---
Abdominal Pain/Male - HPI Summary HPI Summary: This patient is a 57 year old M BIBA to [facility] with a chief complaint of abd pain that began at 0000. The patient rates the pain 7/10 in severity. Symptoms aggravated by nothing. Symptoms alleviated by nothing. - History of Current Complaint Chief Complaint: EDSubstanceAbuse Stated Complaint: ABD PAIN Hx Obtained From: Patient Onset/Duration: Sudden Onset, Lasting Hours, Still Present Timing: Constant Severity Initially: Moderate Severity Currently: Moderate Pain Intensity: 7 Pain Scale Used: 0-10 Numeric Location: Diffuse Radiates: No Aggravating Factor(s): Nothing Alleviating Factor(s): Nothing - Allergies/Home Medications Allergies/Adverse Reactions: Allergies Allergy/AdvReac Type Severity Reaction Status Date / Time allopurinol Allergy See Comment Verified 10/01/17 21:33 PMH/Surg Hx/FS Hx/Imm Hx Previously Healthy: No Endocrine/Hematology History: Denies: Hx Anticoagulant Therapy Cardiovascular History: Reports: Hx Hypertension - lisinopril? Respiratory History: Denies: Hx Asthma, Hx Chronic Obstructive Pulmonary Disease (COPD) GI History: Reports: Hx Gastroesophageal Reflux Disease, Hx Ulcer - possibly has had in past, pt unclear Denies: Hx Cirrhosis, Hx Gall Bladder Disease Musculoskeletal History: Reports: Hx Gout Psychiatric History: Reports: Hx Depression, Hx Bipolar Disorder, Hx Substance Abuse - alcohol Denies: Hx Eating Disorder, Hx of Violent Episodes Against Others Infectious Disease History: No Infectious Disease History: Denies: Traveled Outside the [place] in Last 30 Days - Family History Known Family History: Positive: None, Unknown - Does not know, Diabetes - father , Other - Social History Occupation: Unemployed Lives: Alone Alcohol Use: Daily Alcohol Amount: 100oz of 8% beer/sometimes vodka Hx Substance Use: No Substance Use Type: Reports: Cocaine, Marijuana - "sometimes" Substance Use Comment - Amount & Last Used: marijuana daily, cocaine occ Hx Tobacco Use: Yes - pt states he's a someday smoker Smoking Status (MU): Light Every Day Tobacco Smoker Review of Systems Negative: Fever Positive: Abdominal Pain All Other Systems Reviewed And Are Negative: Yes Physical Exam - Summary Physical Exam Summary: Appearance: Well-appearing, Well-nourished, lying in bed comfortably. Pt appears intoxicated Skin: Warm, dry, no obvious rash Eyes: sclera anicteric, no conjunctival pallor ENT: mucous membranes moist, pharynx appears normal Neck: Supple, nontender Respiratory: Clear to auscultation, no signs of respiratory distress Cardiovascular: Normal S1, S2. No murmurs. Normal distal pulses in tibial and radial bilaterally. Abdomen: Soft, nontender, normal active bowel sounds present Musculoskeletal: Normal, Strength/ROM Intact Neurological: A&Ox3, awake and alert, mentation is normal, speech is fluent and appropriate Psychiatric: affect is normal, does not appear anxious or depressed Triage Information Reviewed: Yes Vital Signs On Initial Exam: Initial Vitals Temp Pulse Resp BP Pulse Ox 97.5 F 92 18 122/70 95 11/30/17 02:12 11/30/17 02:12 11/30/17 02:12 11/30/17 02:12 11/30/17 02:12 Vital Signs Reviewed: Yes Diagnostics - Vital Signs Vital Signs Temp Pulse Resp BP Pulse Ox 11/30/17 02:12 97.5 F 92 18 122/70 95 - Laboratory Lab Statement: Any lab studies that have been ordered have been reviewed, and results considered in the medical decision making process. Abdominal Pain Fem Course/Dx - Course Course Of Treatment: This is a 57-year-old man who presents with his typical complaint of abdominal pain associated with excessive alcohol intake. Soon after arriving, he elected to go home. Suspicion of any serious intra- abdominal process is quite low given his prior negative workups for the same complaint. There are no significant maladies on his exam other than signs of intoxication. Despite clear intoxication, the patient is awake and alert, he is ambulating without any significant ataxia, gives appropriate answers to questions, and is deemed to be competent to refuse further medical care. Accordingly he will be discharged. - Diagnoses Provider Diagnoses: Alcohol intoxication Discharge - Sign-Out/Discharge Documenting (check all that apply): Patient Departure - Discharge Plan Condition: Fair Disposition: HOME Patient Education Materials: Abuse of Alcohol (ED) Referrals: No Primary Care Phys,NOPCP [Primary Care Provider] - [facility] [Outside] [facility] [Outside] - Billing Disposition and Condition Condition: FAIR Disposition: Home - Attestation Statements Document Initiated by Scribe: Yes Documenting Scribe: Elise Orourke Provider For Whom Scribe is Documenting (Include Credential): Rajan Simmons MD Scribe Attestation: Elise Will, scribed for Rajan Simmons MD on 11/30/17 at 0354.
[2017-11-30] MEDS ORDERED: Lidocaine 2% VISCOUS* 15 ML UDC PO ONE (02:21)
[2017-11-30] MEDS ORDERED: Al Hydrox/Mg Hydrox/Simet LIQ* 30 ML UDC PO ONE (02:21)
[2017-11-30 04:53] VITALS: BP 0/0
== END 2017-11-30 03:45 | disposition left against medical advice (07) ==
LOC: ED 02:06
DX: F10.129 Alcohol abuse with intoxication, unspecified (principal); R10.9 Unspecified abdominal pain; F17.210 Nicotine dependence, cigarettes, uncomplicated
CPT/HCPCS: 99284

== ENCOUNTER 2017-12-02 10:33 | Emergency (ER) | payer OTHER, MEDICAID ==
[2017-12-02] MEDS ORDERED: Famotidine TAB* 20 MG PO ONE (10:38)
[2017-12-02] MEDS ORDERED: Sucralfate TAB* 1 GM PO ONE (10:46)
--- NOTE | 2017-12-02 10:53 | ED ---
Substance Abuse/Use - HPI Summary HPI Summary: Patient is a 57 y/o M w/ c/o abdominal pain onsetting 5 months ago. On triage, he reports N/V as well. In the room, when asked what Sx he is experiencing, he replies, 'nothing new". Patient reports that he was drinking this morning at home, denies drinking last night. He states he currently lives in [place], and not [place]. He states he is "wanted or alive" in [place] and that he owes the state money. PCP is reported to be Dr. Talley. He denies abdominal surgery Hx but states his gallbladder needs to be removed "sooner or later". On RN reassessment, pain is rated 5/10, patient is "unsure" of what aggravates/ alleviates Sx. Home medications and allergies reviewed. Parent from "natural causes". 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 Respiratory History: Denies: Hx Asthma, Hx Chronic Obstructive Pulmonary Disease (COPD) GI History: Reports: Hx Gastroesophageal Reflux Disease, Hx Ulcer - possibly has had in past, pt unclear Denies: Hx Cirrhosis, Hx Gall Bladder Disease Musculoskeletal History: Reports: Hx Gout Psychiatric History: Reports: Hx Depression, Hx Bipolar Disorder, Hx Substance Abuse - alcohol Denies: Hx Eating Disorder, Hx of Violent Episodes Against Others Infectious Disease History: No Infectious Disease History: Denies: Traveled Outside the US in Last 30 Days - Family History Known Family History: Positive: Diabetes - father, Other - parents are reported to have from "natural causes" - Social History Alcohol Use: Daily Alcohol Amount: 100oz of 8% beer/sometimes vodka Hx Substance Use: No Substance Use Type: Reports: Cocaine, Marijuana - "sometimes" Substance Use Comment - Amount & Last Used: marijuana daily, cocaine occ Hx Tobacco Use: Yes - pt states he's a someday smoker Smoking Status (MU): Light Every Day Tobacco Smoker Review of Systems Positive: Other - alcohol intoxication Positive: Abdominal Pain, Vomiting, Nausea All Other Systems Reviewed And Are Negative: Yes Physical Exam - Summary Physical Exam Summary: Appearance: No pain distress; smell of alcohol, intoxicated appearing; clear speech. Skin: warm, dry, reflects adequate perfusion Head/face: normal Eyes: EOMI, CECILIA ENT: normal Neck: supple, non-tender Respiratory: CTA, breath sounds present Cardiovascular: RRR, pulses symmetrical Abdomen: non-tender, soft Bowel Sounds: present Musculoskeletal: normal, strength/ROM intact Neuro: normal, sensory motor intact, A&Ox3 Triage Information Reviewed: Yes Vital Signs On Initial Exam: Initial Vitals Temp Pulse Resp BP Pulse Ox 98.4 F 104 18 140/81 96 12/02/17 10:40 12/02/17 10:40 12/02/17 10:40 12/02/17 10:40 12/02/17 10:40 Vital Signs Reviewed: Yes Diagnostics - Vital Signs Vital Signs Temp Pulse Resp BP Pulse Ox 12/02/17 10:40 98.4 F 104 18 140/81 96 - Laboratory Lab Statement: Any lab studies that have been ordered have been reviewed, and results considered in the medical decision making process. Re-Evaluation - Re-Evaluation First Eval Change: Improved - Patient feels much better with GI treatment Course/Dx - Course Course Of Treatment: Patient with chronic recurring abdominal pain after drinking heavily. He felt much better after GI treatments here. Likely this is a result of chronic gastritis inflamed by his drinking. - Diagnoses Provider Diagnoses: Chronic abdominal pain, Alcoholism, Alcoholic gastritis Discharge - Sign-Out/Discharge Documenting (check all that apply): Patient Departure - discharge - Discharge Plan Condition: Stable Disposition: HOME Prescriptions: Famotidine TAB* [Pepcid 20 MG TAB*] 20 mg PO BID #10 tab Pantoprazole TAB (NF) [Protonix TAB (NF)] 40 mg PO DAILY #30 tab Sucralfate [Carafate] 1 gm PO TID #30 tablet Patient Education Materials: Abuse of Alcohol (ED), Chronic Abdominal Pain (ED) Referrals: [facility] [Outside] [facility] [Outside] No Primary Care Phys,NOPCP [Primary Care Provider] - Additional Instructions: Never drink to excess. Cut back on her drinking. A list of local resources has been provided to you to assist with your drinking. Take prescribed medications for your abdominal discomfort. Return if worse, new symptoms or other concerns. - Billing Disposition and Condition Condition: STABLE Disposition: Home - Attestation Statements Document Initiated by Rosi: Yes Documenting Scribe: Flip Juarez Provider For Whom Rosi is Documenting (Include Credential): Cedric Cho MD Scribe Attestation: Flip Will, scribed for Cedric Cho MD on 12/02/17 at 1239. Scribe Documentation Reviewed: Yes Provider Attestation: The documentation as recorded by the Flip christensen accurately reflects the service I personally performed and the decisions made by Cedric caba MD
[2017-12-02 12:54] VITALS: BP 154/124
== END 2017-12-02 12:53 | disposition home or self-care (01) ==
LOC: ED 10:33
DX: R10.9 Unspecified abdominal pain (principal); G89.29 Other chronic pain; F10.20 Alcohol dependence, uncomplicated; K29.20 Alcoholic gastritis without bleeding; F32.9 Major depressive disorder, single episode, unspecified; K21.9 Gastro-esophageal reflux disease without esophagitis; Z72.0 Tobacco use
CPT/HCPCS: 99282; A9270-GY

== ENCOUNTER 2017-12-03 11:32 | Emergency (ER) | payer OTHER, MEDICAID ==
--- NOTE | 2017-12-03 12:07 | ED ---
Abdominal Pain/Male - HPI Summary HPI Summary: The pt is a 57 y/o male presenting to [facility] c/o diffuse abd pain since 5 months ago worse today. The pain is rated 2/10 in severity. The pt was seen and discharged at [facility] yesterday (12/02/2017) for chronic abdominal pain and Alcohol abuse. As per nurses notes, the pt was drinking a beer on arrival. - History of Current Complaint Chief Complaint: EDAbdPain Stated Complaint: abd pain, substance abuse Time Seen by Provider: 12/03/17 12:01 Hx Obtained From: Patient Hx From Patient Unobtainable Due To: Altered Mental Status - EtOH intoxication Onset/Duration: Gradual Onset, Lasting Weeks - 5 months, Still Present, Worse Since - Today Timing: Constant Severity Currently: Mild Pain Intensity: 2 Pain Scale Used: 0-10 Numeric Location: Diffuse - Allergies/Home Medications Allergies/Adverse Reactions: Allergies Allergy/AdvReac Type Severity Reaction Status Date / Time allopurinol Allergy See Comment Verified 12/03/17 12:27 PMH/Surg Hx/FS Hx/Imm Hx Previously Healthy: No Endocrine/Hematology History: Denies: Hx Anticoagulant Therapy Cardiovascular History: Reports: Hx Hypertension - lisinopril? Respiratory History: Denies: Hx Asthma, Hx Chronic Obstructive Pulmonary Disease (COPD) GI History: Reports: Hx Gastroesophageal Reflux Disease, Hx Ulcer - possibly has had in past, pt unclear Denies: Hx Cirrhosis, Hx Gall Bladder Disease Musculoskeletal History: Reports: Hx Gout Psychiatric History: Reports: Hx Depression, Hx Bipolar Disorder, Hx Substance Abuse - alcohol Denies: Hx Eating Disorder, Hx of Violent Episodes Against Others - Cancer History Cancer Type, Location and Year: None - Surgical History Surgery Procedure, Year, and Place: None Infectious Disease History: No Infectious Disease History: Denies: Traveled Outside the [place] in Last 30 Days - Family History Known Family History: Positive: Diabetes - father, Other - parents are reported to have from "natural causes" - Social History Occupation: Unemployed Lives: Alone Alcohol Use: Daily Alcohol Amount: 100oz of 8% beer/sometimes vodka Hx Substance Use: No Substance Use Type: Reports: Cocaine, Marijuana - "sometimes" Substance Use Comment - Amount & Last Used: marijuana daily, cocaine occ Hx Tobacco Use: Yes - pt states he's a someday smoker Smoking Status (MU): Light Every Day Tobacco Smoker - Additional Comments History Additional Comments: LEVEL 5 CAVEAT: Unable to obtain complete PMx due to AMS . Review of Systems - ROS Summary Review of Systems Summary: LEVEL 5 CAVEAT: Unable to obtain complete ROS due to AMS Positive: Abdominal Pain Positive: Other - Negative: SI/HI All Other Systems Reviewed And Are Negative: Yes Physical Exam - Summary Physical Exam Summary: LEVEL 5 CAVEAT: Unable to obtain complete PE due to AMS . Appearance: The patient is well-nourished in no acute distress and in no acute pain. Skin: The skin is warm and dry and skin color reflects adequate perfusion. HEENT: The head is normocephalic and atraumatic. The pupils are equal and reactive. The conjunctivae are clear and without drainage. Nares are patent and without drainage. Mouth reveals moist mucous membranes and the throat is without erythema and exudate. The external ears are intact. The ear canals are patent and without drainage. The tympanic membranes are intact. Neck: The neck is supple with full range of motion and non-tender. There are no carotid bruits. There is no neck vein distension. Respiratory: Chest is non-tender. Lungs are clear to auscultation and breath sounds are symmetrical and equal. Cardiovascular: Heart is regular rate and rhythm. There is no murmur or rub auscultated. There is no peripheral edema and pulses are symmetrical and equal. Abdomen: The abdomen is soft and non-tender. There are normal bowel sounds heard in all four quadrants and there is no organomegaly palpated. Musculoskeletal: There is no back tenderness noted. Extremities are non-tender with full range of motion. There is good capillary refill. There is no peripheral edema or calf tenderness elicited. Neurological: Patient is alert and oriented to person, place and time. The patient has symmetrical motor strength in all four extremities. Cranial nerves are grossly intact. Deep tendon reflexes are symmetrical and equal in all four extremities. Psychiatric: The patient has an appropriate affect and does not exhibit any anxiety or depression. Triage Information Reviewed: Yes Vital Signs On Initial Exam: Initial Vitals Temp Pulse Resp BP Pulse Ox 98.6 F 117 17 132/84 96 12/03/17 11:44 12/03/17 11:44 12/03/17 11:44 12/03/17 11:44 12/03/17 11:44 Vital Signs Reviewed: Yes Completion Of Physical Exam Limited Due To: Altered Mental Status Diagnostics - Vital Signs Vital Signs Temp Pulse Resp BP Pulse Ox 12/03/17 11:44 98.6 F 117 17 132/84 96 - Laboratory Lab Statement: Any lab studies that have been ordered have been reviewed, and results considered in the medical decision making process. Re-Evaluation - Re-Evaluation First Eval Re-Evaluation Time: 13:02 Change: Improved Comment: The pt notes that he feels better and is ready for discharge. Abdominal Pain Fem Course/Dx - Course Course Of Treatment: Mr. Rodrigues presented to the emergency department drinking a beer and asking for a mental health eval. When I saw him he stated that he has been having abdominal pain on and off for 5 months and that that is the reason he is here. Recent records were reviewed and he was given sucralfate by mouth. He was reevaluated and stated that his pain was completely gone after that and requested discharge. He is clinically sober although he does admit to drinking some this morning. I will give him a prescription for sucralfate and he requests a dose to take home with him now. He is cautioned that if he continues to drink excessively he will continue to have this problem and worse. - Diagnoses Provider Diagnoses: Epigastric abdominal pain Discharge - Sign-Out/Discharge Documenting (check all that apply): Patient Departure - DC - Discharge Plan Condition: Stable Disposition: HOME Prescriptions: Sucralfate SUSP 1 gm PO QID ACHS #200 ml Patient Education Materials: Epigastric Pain (ED) Referrals: No Primary Care Phys,NOPCP [Medical Doctor] - [facility] [Outside] Additional Instructions: Return to ED for any new or worsening symptoms Follow up with your PCP in 3 days - Billing Disposition and Condition Condition: STABLE Disposition: Home - Attestation Statements Document Initiated by Scribe: Yes Documenting Scribe: Loraine Arboleda Provider For Whom Ryanniboliver is Documenting (Include Credential): Dr. Rajan Landon MD Scribe Attestation: Loraine Will scribed for Dr. Rajan Landon MD on 12/03/17 at 2014. Scribe Documentation Reviewed: Yes Provider Attestation: The documentation as recorded by the Loraine christensen accurately reflects the service I personally performed and the decisions made by me, Dr. Rajan Landon MD
[2017-12-03] MEDS ORDERED: Sucralfate TAB* 1 GM PO ONE ×2 (12:10→13:03)
[2017-12-03 13:20] VITALS: BP 124/78
== END 2017-12-03 13:19 | disposition home or self-care (01) ==
LOC: ED 11:32
DX: R10.13 Epigastric pain (principal); F17.210 Nicotine dependence, cigarettes, uncomplicated
CPT/HCPCS: 99282; A9270-GY

== ENCOUNTER 2017-12-10 21:35 | Emergency (ER) | payer OTHER, MEDICAID ==
--- NOTE | 2017-12-10 21:52 | ED ---
Abdominal Pain/Male - History of Current Complaint Chief Complaint: EDAbdPain Stated Complaint: GENERAL ILLNESS Pain Intensity: 5 - Allergies/Home Medications Allergies/Adverse Reactions: Allergies Allergy/AdvReac Type Severity Reaction Status Date / Time allopurinol Allergy See Comment Verified 12/03/17 12:27 PMH/Surg Hx/FS Hx/Imm Hx Previously Healthy: No Endocrine/Hematology History: Denies: Hx Anticoagulant Therapy Cardiovascular History: Reports: Hx Hypertension - lisinopril? Respiratory History: Denies: Hx Asthma, Hx Chronic Obstructive Pulmonary Disease (COPD) GI History: Reports: Hx Gastroesophageal Reflux Disease, Hx Ulcer - possibly has had in past, pt unclear Denies: Hx Cirrhosis, Hx Gall Bladder Disease Musculoskeletal History: Reports: Hx Gout Psychiatric History: Reports: Hx Depression, Hx Bipolar Disorder, Hx Substance Abuse - alcohol Denies: Hx Eating Disorder, Hx of Violent Episodes Against Others - Cancer History Cancer Type, Location and Year: None - Surgical History Surgery Procedure, Year, and Place: None Infectious Disease History: Unable to Obtain/Confirm Infectious Disease History: Denies: Traveled Outside the [place] in Last 30 Days - Family History Known Family History: Positive: Diabetes - father, Other - parents are reported to have from "natural causes" - Social History Alcohol Use: Daily Alcohol Amount: 100oz of 8% beer/sometimes vodka Hx Substance Use: No Substance Use Type: Reports: Cocaine, Marijuana - "sometimes" Substance Use Comment - Amount & Last Used: marijuana daily, cocaine occ Hx Tobacco Use: Yes - pt states he's a someday smoker Smoking Status (MU): Light Every Day Tobacco Smoker Review of Systems Negative: Fever, Chills Negative: Erythema Negative: Sore Throat Negative: Chest Pain Negative: Shortness Of Breath, Cough Negative: Abdominal Pain, Vomiting, Nausea Negative: dysuria, hematuria Negative: Myalgia, Edema Negative: Rash Neurological: Other - no dizziness All Other Systems Reviewed And Are Negative: Yes Physical Exam - Summary Physical Exam Summary: Constitutional: Well-developed, Well-nourished, Alert. (-) Distressed Skin: Warm, Dry HENT: Normocephalic; Atraumatic Eyes: Conjunctiva normal Neck: Musculoskeletal ROM normal neck. (-) JVD, (-) Stridor, (-) Tracheal deviation Cardio: Rhythm regular, rate normal, Heart sounds normal; Intact distal pulses; The pedal pulses are 2+ and symmetric. Radial pulses are 2+ and symmetric. (-) Murmur Pulmonary/Chest wall: Effort normal. (-) Respiratory distress, (-) Wheezes, (-) Rales Abd: Soft, (-) epigastric tenderness, (-) Distension, (-) Guarding, (-) Rebound Musculoskeletal: (-) Edema Lymph: (-) Cervical adenopathy Neuro: Alert, Oriented x3 Psych: Mood and affect Normal Triage Information Reviewed: Yes Vital Signs On Initial Exam: Initial Vitals Temp Pulse Resp BP Pulse Ox 97.6 F 90 18 171/104 99 12/10/17 21:47 12/10/17 21:47 12/10/17 21:47 12/10/17 21:47 12/10/17 21:47 Vital Signs Reviewed: Yes Diagnostics - Vital Signs Vital Signs Temp Pulse Resp BP Pulse Ox 12/10/17 21:47 97.6 F 90 18 171/104 99 - Laboratory Lab Statement: Any lab studies that have been ordered have been reviewed, and results considered in the medical decision making process. Discharge - Discharge Plan Referrals: Jhon Talley MD [Primary Care Provider] - - Attestation Statements Document Initiated by Scribe: Yes Documenting Scribe: Nilo Ordoñez Provider For Whom Scribe is Documenting (Include Credential): Drew Salinas MD Scribe Attestation: Nilo Will, scribed for Drew Salinas MD on 12/10/17 at 2152.
--- NOTE | 2017-12-10 22:01 | ED ---
Psychiatric Complaint - HPI Summary HPI Summary: 57 y/o male BIBErin c/o depression, still present, constant. Sx not aggravated or alleviated by anything. Pt states he "doesn't want to " and came to the ED to "see living people". Pt also states he drinks vodka all the time. - History Of Current Complaint Chief Complaint: EDAbdPain Time Seen by Provider: 12/10/17 21:55 Hx Obtained From: Patient Onset/Duration: Still Present Timing: Constant Character: Depressed Aggravating Factor(s): Nothing Alleviating Factor(s): Nothing - Allergies/Home Medications Allergies/Adverse Reactions: Allergies Allergy/AdvReac Type Severity Reaction Status Date / Time allopurinol Allergy See Comment Verified 12/03/17 12:27 PMH/Surg Hx/FS Hx/Imm Hx Previously Healthy: No Endocrine/Hematology History: Denies: Hx Anticoagulant Therapy Cardiovascular History: Reports: Hx Hypertension - lisinopril? Respiratory History: Denies: Hx Asthma, Hx Chronic Obstructive Pulmonary Disease (COPD) GI History: Reports: Hx Gastroesophageal Reflux Disease, Hx Ulcer - possibly has had in past, pt unclear Denies: Hx Cirrhosis, Hx Gall Bladder Disease Musculoskeletal History: Reports: Hx Gout Psychiatric History: Reports: Hx Depression, Hx Bipolar Disorder, Hx Substance Abuse - alcohol Denies: Hx Eating Disorder, Hx of Violent Episodes Against Others - Cancer History Cancer Type, Location and Year: None - Surgical History Surgery Procedure, Year, and Place: None - Immunization History Immunizations Up to Date: Yes Infectious Disease History: Unable to Obtain/Confirm Infectious Disease History: Denies: Traveled Outside the [place] in Last 30 Days - Family History Known Family History: Positive: Diabetes - father, Other - parents are reported to have from "natural causes" - Social History Alcohol Use: Daily Alcohol Amount: 100oz of 8% beer/sometimes vodka Hx Substance Use: No Substance Use Type: Reports: Cocaine, Marijuana Substance Use Comment - Amount & Last Used: marijuana daily, cocaine occ Hx Tobacco Use: Yes - pt states he's a someday smoker Smoking Status (MU): Light Every Day Tobacco Smoker Review of Systems Negative: Fever, Chills Negative: Erythema Negative: Sore Throat Negative: Chest Pain Negative: Shortness Of Breath, Cough Negative: Abdominal Pain, Vomiting, Nausea Negative: dysuria, hematuria Negative: Myalgia, Edema Negative: Bruising Neurological: Other - no dizziness All Other Systems Reviewed And Are Negative: Yes Physical Exam - Summary Physical Exam Summary: Constitutional: Well-developed, Well-nourished, Alert. (-) Distressed Skin: Warm, Dry HENT: Normocephalic; Atraumatic Eyes: Conjunctiva normal Neck: Musculoskeletal ROM normal neck. (-) JVD, (-) Stridor, (-) Tracheal deviation Cardio: Rhythm regular, rate normal, Heart sounds normal; Intact distal pulses; The pedal pulses are 2+ and symmetric. Radial pulses are 2+ and symmetric. (-) Murmur Pulmonary/Chest wall: Effort normal. (-) Respiratory distress, (-) Wheezes, (-) Rales Abd: Soft, (-) epigastric tenderness, (-) Distension, (-) Guarding, (-) Rebound Musculoskeletal: (-) Edema Lymph: (-) Cervical adenopathy Neuro: Alert, Oriented x3 Psych: Mood and affect Normal Triage Information Reviewed: Yes Vital Signs On Initial Exam: Initial Vitals Temp Pulse Resp BP Pulse Ox 97.6 F 90 18 171/104 99 12/10/17 21:47 12/10/17 21:47 12/10/17 21:47 12/10/17 21:47 12/10/17 21:47 Vital Signs Reviewed: Yes Diagnostics - Vital Signs Vital Signs Temp Pulse Resp BP Pulse Ox 12/10/17 21:47 97.6 F 90 18 171/104 99 - Laboratory Result Diagrams: 12/10/17 22:05 12/10/17 22:05 Lab Statement: Any lab studies that have been ordered have been reviewed, and results considered in the medical decision making process. Course/Dx - Course Assessment/Plan: Pt will be signed out to Dr. Harris pending labs and dispo. - Differential Dx/Clinical Impression Provider Diagnosis: Alcohol intoxication Discharge - Sign-Out/Discharge Documenting (check all that apply): Sign-Out Patient Signing out patient TO: Bakari Harris Receiving patient FROM: Drew Salinas - Discharge Plan Referrals: Jhon Talley MD [Primary Care Provider] - - Attestation Statements Document Initiated by Scribe: Yes Documenting Scribe: Nilo Ordoñez Provider For Whom Scribe is Documenting (Include Credential): Drew Salinas MD Scribe Attestation: Nilo Will scribed for Drew Salinas MD on 12/11/17 at 0013.
[2017-12-10 22:17] LABS: ABS Basophils 0 10^3/ul (0-0.2); ABS Eosinophils 0.1 10^3/ul (0-0.6); ABS Monocytes 0.4 10^3/ul (0-0.8); ABS Neutrophils 2.1 10^3/ul (1.5-7.7); ABS Nucleated RBC 0 10^3/ul; Eosinophil % 1.9 % (0-6); Hematocrit 30 % (42-52); Hemoglobin 9.9 g/dl (14.0-18.0); Lymphocyte % 43.5 % (25-47); Mean Corpuscular HGB Conc 33 g/dl (31-36); Mean Corpuscular Hemoglobin 33 pg (27-31); Mean Corpuscular Volume 99 fL (80-94); Mean Platelet Volume 7.1 um3 (7.4-10.4); Nucleated Red Blood Cells % 0.1; Platelet Count 301 10^3/ul (150-450); Red Blood Count 3.04 10^6/ul (4.00-5.40); Red Cell Distribution Width 18 % (10.5-15); White Blood Count 4.6 10^3/ul (3.5-10.8)
[2017-12-10 22:35] LABS: Urine Appearance Clear; Urine Blood 1+ (Negative); Urine Color Straw; Urine Ketones Negative (Negative); Urine Protein 1+(30 mg/dL) (Negative); Urine Red Blood Cell Trace(0-2/hpf) (Absent); Urine Specific Gravity 1.005 (1.010-1.030); Urine Urobilinogen Negative (Negative); Urine White Blood Cell Absent (Absent)
[2017-12-11] MEDS ORDERED: Famotidine TAB* 20 MG PO ONE (01:12)
[2017-12-11] MEDS ORDERED: Acetaminophen TAB* 325 MG PO ONE ×2 (01:13→06:12)
[2017-12-11] MEDS ORDERED: Ibuprofen TAB* 800 MG PO ONE (02:02)
--- NOTE | 2017-12-11 06:10 | PN ---
ED Flex Patient Progress Note Subjective: This is a 57 year-old M who is pending psychiatric eval secondary to " wants to see living people" . Pt reports he is "going through withdrawal" (ETOH) and knees hurt "I have gout - feels the same". Withdrawal sx include PERDUE, irritability, hot alternating w/ cold, reduced appetite. Denies CP, SOB, ab pain, N/V/D, sweats, tremors, hallucinations. Requested medication for librium - Dr. Harris aware. Pt aware of his anemia and reports "I'm anemic because they (PCP) won't give me a multivitamin - they don't like it when you dx yourself". Denies hematochezia, melena, hematemesis. Objective: Vitals: Most recent vital signs documented below. General: Covering face with arm, lying on stretcher - otherwise NAD, Alert and oriented x3 Heart: rrr, S1/S2, Lungs: CTA, BREATHING EASILY AB: + BS, soft, NTTP INTEG: dry NEURO: no tremor observed PSYCH: interacts well, mild irritability observed but cooperative Laboratory: Current laboratory results documented below. Assessment: 1) ETOH abuse 2) knee pain, h/o gout 3) Anemia, chronic and stable Plan: 1) Pending psychiatric eval. Will follow up daily __while in ED___. Pt concern for withdrawal but does not voice desire for detox tx. No active withdrawal sx at this time - WA protocol and banana bag ordered. Dr. Harris aware of pt's request for benzo's. 2) Uric acid level ordered. In the meantime, acetaminophen ordered (LFT's appear to be able to tolerate this medication at this time). Will refrain from NSAID's d/t anemia. Consider colchicine. 3) Appears to be chronic and stable Vital Signs Temp Pulse Resp BP Pulse Ox 99.7 F 115 20 133/69 94 12/11/17 02:41 12/11/17 02:41 12/11/17 02:41 12/11/17 02:41 12/11/17 02:41 Lab Results - Entire Visit 12/10/17 12/10/17 12/10/17 22:24 22:24 22:05 WBC 4.6 RBC 3.04 L Hgb 9.9 L Hct 30 L MCV 99 H MCH 33 H MCHC 33 RDW 18 H Plt Count 301 MPV 7.1 L Neut % (Auto) 44.6 Lymph % (Auto) 43.5 Evans % (Auto) 9.0 H Eos % (Auto) 1.9 Baso % (Auto) 1.0 Absolute Neuts (auto) 2.1 Absolute Lymphs (auto) 2.0 Absolute Monos (auto) 0.4 Absolute Eos (auto) 0.1 Absolute Basos (auto) 0 Absolute Nucleated RBC 0 Nucleated RBC % 0.1 Sodium Potassium Chloride Carbon Dioxide Anion Gap BUN Creatinine Est GFR ( Amer) Est GFR (Non-Af Amer) BUN/Creatinine Ratio Glucose Calcium Total Bilirubin AST ALT Alkaline Phosphatase Total Protein Albumin Globulin Albumin/Globulin Ratio TSH Urine Color Straw Urine Appearance Clear Urine pH 5.0 Ur Specific [place] 1.005 L Urine Protein 1+(30 mg/dl) A Urine Ketones Negative Urine Blood 1+ A Urine Nitrate Negative Urine Bilirubin Negative Urine Urobilinogen Negative Ur Leukocyte Esterase Negative Urine WBC (Auto) Absent Urine RBC (Auto) Trace(0-2/hpf) Urine Bacteria Absent Urine Glucose Negative Salicylates Urine Opiates Screen None detected Acetaminophen Ur Barbiturates Screen None detected Ur Phencyclidine Scrn None detected Ur Amphetamines Screen None detected U Benzodiazepines Scrn None detected Urine Cocaine Screen Presumptive positive A U Cannabinoids Screen None detected Serum Alcohol 12/10/17 12/10/17 22:05 22:04 WBC RBC Hgb Hct MCV MCH MCHC RDW Plt Count MPV Neut % (Auto) Lymph % (Auto) Evans % (Auto) Eos % (Auto) Baso % (Auto) Absolute Neuts (auto) Absolute Lymphs (auto) Absolute Monos (auto) Absolute Eos (auto) Absolute Basos (auto) Absolute Nucleated RBC Nucleated RBC % Sodium 139 Potassium 4.6 Chloride 106 Carbon Dioxide 22 Anion Gap 11 BUN 21 Creatinine 1.08 Est GFR ( Amer) 84.7 Est GFR (Non-Af Amer) 70.0 BUN/Creatinine Ratio 19.4 Glucose 87 Calcium 9.3 Total Bilirubin 0.30 AST 42 H ALT 26 Alkaline Phosphatase 56 Total Protein 8.1 Albumin 4.5 Globulin 3.6 Albumin/Globulin Ratio 1.3 TSH 1.59 Urine Color Urine Appearance Urine pH Ur Specific [place] Urine Protein Urine Ketones Urine Blood Urine Nitrate Urine Bilirubin Urine Urobilinogen Ur Leukocyte Esterase Urine WBC (Auto) Urine RBC (Auto) Urine Bacteria Urine Glucose Salicylates < 2.50 Urine Opiates Screen Acetaminophen < 15 Ur Barbiturates Screen Ur Phencyclidine Scrn Ur Amphetamines Screen U Benzodiazepines Scrn Urine Cocaine Screen U Cannabinoids Screen Serum Alcohol 224 H
[2017-12-11] MEDS ORDERED: Thiamine IV* 100 MG, Folic Acid IV* 1 MG, Multiple Vitamin IV ADULT* 10 ML in NS 0.9% 1... IV ONE (06:11)
--- NOTE | 2017-12-11 06:47 | ED ---
Progress - Progress Note Progress Note: Patient was signed out to Dr. Bakari Harris via Dr. Drew Salinas, awaiting/ pending disposition at shift change on 12/10/2017 at 2200. - Consult/PCP Time Called: 03:00 Course/Dx - Course Course Of Treatment: A 57 y/o male MIMI presents to ED c/o depression. No laboratory scans were done. Blood work and UA were done. In the ED course, the patient recieved Tylenol, Motrin, Pepcid and Thiamine. After MHE, patient care was discussed with Dr. Awad who recommends discharging patient. Patient jeffrey be discharged with a diagnosis of substance abuse. Patient is to follow up with mental health clinic as needed. Patient is agreeable with this plan. - Diagnoses Provider Diagnoses: Substance abuse Discharge - Sign-Out/Discharge Documenting (check all that apply): Patient Departure - DISCHARGE - Discharge Plan Condition: Stable Disposition: HOME Referrals: Jhon Talley MD [Primary Care Provider] - - Attestation Statements Document Initiated by Scribe: Yes Documenting Scribe: Miguel Cervantes Provider For Whom Rosi is Documenting (Include Credential): Bakari Harris MD Scribe Attestation: Miguel Will, scribed for Bakari Harris MD on 12/11/17 at 0647.
[2017-12-11 06:59] LABS: Uric Acid 11.5 mg/dL (4.4-7.6)
[2017-12-11] MEDS ORDERED: Multivitamins/Minerals TAB PO ONE (07:34)
[2017-12-11] MEDS ORDERED: Colchicine* 0.6 MG TAB PO SCH (08:00)
[2017-12-11] MEDS ORDERED: Colchicine* 0.6 MG TAB PO ONE ×2 (08:00→09:00)
[2017-12-11 09:14] VITALS: BP 131/75
== END 2017-12-11 09:13 | disposition home or self-care (01) ==
LOC: ED 21:35
DX: F10.129 Alcohol abuse with intoxication, unspecified (principal); F17.200 Nicotine dependence, unspecified, uncomplicated; Z88.8 Allergy status to other drugs, medicaments and biological substances
CPT/HCPCS: 36415; 80053; 80307; 80320; 80329; 81003; 81015; 84443; 84550; 85025; 96374; 99285; A9270-GY; G0480; J3411

== ENCOUNTER 2018-02-02 18:38 | Emergency (ER) | payer OTHER, MEDICAID ==
[2018-02-02 18:52] VITALS: BP 137/78
--- NOTE | 2018-02-02 19:03 | ED ---
HPI Chest Pain - HPI Summary HPI Summary: The pt is a 57 y/o male presenting to [facility] c/o midsternal CP for weeks worsened today. The pain rated 4/10 in severity is aggravated by cold air. He notes dyspnea and requests a CXR due to concerns for PNA. He denies a hx of respiratory problems. - History of Current Complaint Chief Complaint: EDChestWallPain Time Seen by Provider: 02/02/18 18:52 Hx Obtained From: Patient Onset/Duration: Started Weeks Ago, Still Present Timing: Constant Current Severity: Mild Pain Intensity: 4 Pain Scale Used: 0-10 Numeric Chest Pain Location: Mid Sternal Character: Dyspnea at Rest Aggravating Factor(s): Other: - Cold air Associated Signs and Symptoms: Positive: Chest Pain. Negative: Fever - Allergy/Home Medications Allergies/Adverse Reactions: Allergies Allergy/AdvReac Type Severity Reaction Status Date / Time allopurinol Allergy See Comment Verified 12/03/17 12:27 PMH/Surg Hx/FS Hx/Imm Hx Previously Healthy: No Endocrine/Hematology History: Denies: Hx Anticoagulant Therapy Cardiovascular History: Reports: Hx Hypertension - lisinopril? Respiratory History: Denies: Hx Asthma, Hx Bronchopulmonary Dysplasia, Hx Chronic Bronchitis, Hx Chronic Obstructive Pulmonary Disease (COPD), Hx Cystic Fibrosis, Hx Lung Cancer , Hx Pleural Effusion, Hx Pneumonia, Hx Pulmonary Edema, Hx Pulmonary Embolism, Hx Seasonal Allergies, Hx Sleep Apnea, Other Respiratory Problems/Disorders GI History: Reports: Hx Gastroesophageal Reflux Disease, Hx Ulcer - possibly has had in past, pt unclear Denies: Hx Cirrhosis, Hx Gall Bladder Disease Musculoskeletal History: Reports: Hx Gout Psychiatric History: Reports: Hx Depression, Hx Bipolar Disorder, Hx Substance Abuse - alcohol Denies: Hx Eating Disorder, Hx of Violent Episodes Against Others - Cancer History Cancer Type, Location and Year: None - Surgical History Surgery Procedure, Year, and Place: None Infectious Disease History: No Infectious Disease History: Denies: Traveled Outside the [place] in Last 30 Days - Family History Known Family History: Positive: Diabetes - father, Other - parents are reported to have from "natural causes" - Social History Occupation: Unemployed Lives: Alone Alcohol Use: Daily Alcohol Amount: 100oz of 8% beer/sometimes vodka Hx Substance Use: No Substance Use Type: Reports: Cocaine, Marijuana Substance Use Comment - Amount & Last Used: marijuana daily, cocaine occ Hx Tobacco Use: Yes - pt states he's a someday smoker Smoking Status (MU): Light Every Day Tobacco Smoker Review of Systems Negative: Fever Positive: Chest Pain Positive: Other - Positive: Dyspnea All Other Systems Reviewed And Are Negative: Yes Physical Exam - Summary Physical Exam Summary: Appearance: The patient is well-nourished in no acute respiratory distress and in no acute pain. Skin: The skin is warm and dry and skin color reflects adequate perfusion. HEENT: The head is normocephalic and atraumatic. The pupils are equal and reactive. The conjunctivae are clear and without drainage. Nares are patent and without drainage. Mouth reveals moist mucous membranes and the throat is without erythema and exudate. The external ears are intact. The ear canals are patent and without drainage. The tympanic membranes are intact. Neck: The neck is supple with full range of motion and non-tender. There are no carotid bruits. There is no neck vein distension. Respiratory: Chest is non-tender. Lungs are clear to auscultation and breath sounds are symmetrical and equal. Cardiovascular: Heart is regular rate and rhythm. There is no murmur or rub auscultated. There is no peripheral edema and pulses are symmetrical and equal. Abdomen: The abdomen is soft and non-tender. There are normal bowel sounds heard in all four quadrants and there is no organomegaly palpated. Musculoskeletal: There is no back tenderness noted. Extremities are non-tender with full range of motion. There is good capillary refill. There is no peripheral edema or calf tenderness elicited. Neurological: Patient is alert and oriented to person, place and time. The patient has symmetrical motor strength in all four extremities. Cranial nerves are grossly intact. Deep tendon reflexes are symmetrical and equal in all four extremities. Psychiatric: The patient has an appropriate affect and does not exhibit any anxiety or depression. Triage Information Reviewed: Yes Vital Signs On Initial Exam: Initial Vitals Temp Pulse Resp BP Pulse Ox 98.1 F 95 16 137/78 100 02/02/18 18:49 02/02/18 18:49 18 18:49 02/02/18 18:49 02/02/18 18:49 Vital Signs Reviewed: Yes Diagnostics - Vital Signs Vital Signs Temp Pulse Resp BP Pulse Ox 02/02/18 18:49 98.1 F 95 16 137/78 100 - Laboratory Lab Statement: Any lab studies that have been ordered have been reviewed, and results considered in the medical decision making process. - Radiology CXR Radiology Interpretation Completed By: ED Physician - IMPRESSION: This is a normal CXR Chest Pain Course/Dx - Course Course Of Treatment: Mr. Rodrigues presented with a chief complaint of pain in his sternum. He was requesting a chest x-ray and was frankly unwilling to entertain my questions or recommendations. He was concerned that he had walking pneumonia. His vitals were stable and a chest x-ray was obtained which was negative for any acute change. He was satisfied with that and requested discharge. He admitted to drinking earlier however he was clinically sober with a saw him. - Diagnoses Provider Diagnoses: Chest pain Discharge - Sign-Out/Discharge Documenting (check all that apply): Patient Departure - DC - Discharge Plan Condition: Stable Disposition: HOME Patient Education Materials: Chest Pain (ED) Referrals: Jhon Talley MD [Primary Care Provider] - Additional Instructions: Follow up with your PCP in 2-3 days Return to ED for any new or worsening symptoms - Billing Disposition and Condition Condition: STABLE Disposition: Home - Attestation Statements Document Initiated by Scribe: Yes Documenting Scribe: Loraine Arboleda Provider For Whom Scribe is Documenting (Include Credential): Dr. Rajan Landon MD Scribe Attestation: Loraine Will scribed for Dr. Rajan Landon MD on 02/02/18 at 2043. Scribe Documentation Reviewed: Yes Provider Attestation: The documentation as recorded by the Loraine christensen accurately reflects the service I personally performed and the decisions made by me, Dr. Rajan Landon MD
--- NOTE | 2018-02-03 08:46 | RAD ---
INDICATION: Chest pain COMPARISON: Chest x-ray dated December 30, 2012 TECHNIQUE: PA and lateral views of the chest were obtained. FINDINGS: The heart and mediastinum are normal in size and contour. Similar to the prior chest x-ray there is asymmetric elevation of the left hemidiaphragm. Beneath the left hemidiaphragm there are multiple gas-filled loops of colon. Lungs are otherwise grossly clear. There is no evidence of large pleural effusion. Visualized bones are normal for the patient's age. There is no radiographic evidence of free air beneath the diaphragm IMPRESSION: PERSISTENT ASYMMETRIC ELEVATION OF THE LEFT HEMIDIAPHRAGM NOT CHANGED SIGNIFICANTLY SINCE AT LEAST 2012 CHEST X-RAY. THOUGH NOT PATHOLOGICALLY DILATED THERE ARE MULTIPLE AIR-FILLED LOOPS OF BOWEL WITHIN THE LEFT HEMIDIAPHRAGM. PLEASE CORRELATE TO GASTROINTESTINAL SYMPTOMS. R2
== END 2018-02-02 20:10 | disposition home or self-care (01) ==
LOC: ED 18:38
DX: R07.89 Other chest pain (principal); Z88.8 Allergy status to other drugs, medicaments and biological substances; Z72.0 Tobacco use
CPT/HCPCS: 71046; 99282

== ENCOUNTER 2018-03-07 18:20 | Emergency (ER) | payer OTHER, MEDICAID ==
--- NOTE | 2018-03-07 18:57 | ED ---
Substance Abuse/Use - HPI Summary HPI Summary: Pt is a 57 y/o male who presents to the ED c/o intoxication. He was at [facility] for a voluntary alcohol detox initially, but he changed his mind. Pt smells of alcohol and marijuana. He states that he hasnt had alcohol in 4 hours. Pt also notes 7 pattie in his head, put there 2 days ago, and he requests for them to be removed. He denies any CP or SOB. PMHx bipolar disorder, depression, and alcohol abuse. - History Of Current Complaint Chief Complaint: EDSubstanceAbuse Stated Complaint: ETOH Time Seen by Provider: 03/07/18 18:48 Hx Obtained From: Patient Ingestion History: Type/Name Of Drug - Alcohol Timing Of Abuse: Daily Character: Stuporous Aggravating Factor(s): Nothing Alleviating Factor(s): Nothing Associated Signs And Symptoms: Negative - Allergies/Home Medications Allergies/Adverse Reactions: Allergies Allergy/AdvReac Type Severity Reaction Status Date / Time allopurinol Allergy See Comment Verified 12/03/17 12:27 PMH/Surg Hx/FS Hx/Imm Hx Endocrine/Hematology History: Denies: Hx Anticoagulant Therapy Cardiovascular History: Reports: Hx Hypertension - lisinopril? Respiratory History: Denies: Hx Asthma, Hx Bronchopulmonary Dysplasia, Hx Chronic Bronchitis, Hx Chronic Obstructive Pulmonary Disease (COPD), Hx Cystic Fibrosis, Hx Lung Cancer , Hx Pleural Effusion, Hx Pneumonia, Hx Pulmonary Edema, Hx Pulmonary Embolism, Hx Seasonal Allergies, Hx Sleep Apnea, Other Respiratory Problems/Disorders GI History: Reports: Hx Gastroesophageal Reflux Disease, Hx Ulcer - possibly has had in past, pt unclear Denies: Hx Cirrhosis, Hx Gall Bladder Disease Musculoskeletal History: Reports: Hx Gout Psychiatric History: Reports: Hx Depression, Hx Bipolar Disorder, Hx Substance Abuse - alcohol Denies: Hx Eating Disorder, Hx of Violent Episodes Against Others - Cancer History Cancer Type, Location and Year: None - Surgical History Surgery Procedure, Year, and Place: None Infectious Disease History: Unable to Obtain/Confirm Infectious Disease History: Denies: Traveled Outside the [place] in Last 30 Days - Family History Known Family History: Positive: Diabetes - father - Social History Alcohol Use: Daily Alcohol Amount: 100oz of 8% beer/sometimes vodka Hx Substance Use: Yes Substance Use Type: Reports: Cocaine, Marijuana Substance Use Comment - Amount & Last Used: crack cocaine Hx Tobacco Use: Yes - pt states he's a someday smoker Smoking Status (MU): Light Every Day Tobacco Smoker Review of Systems Negative: Fever Positive: Other - alcohol intoxication All Other Systems Reviewed And Are Negative: Yes Physical Exam - Summary Physical Exam Summary: VITAL SIGNS: Reviewed. GENERAL: Patient is a well-developed and nourished MALE who is lying comfortable in the stretcher. Patient is not in any acute respiratory distress. Patient smells of alcohol on his breath. HEAD AND FACE: No signs of trauma. No ecchymosis, hematomas or skull depressions. No sinus tenderness. EYES: PERRLA, EOMI x 2, No injected conjunctiva, no nystagmus. EARS: Hearing grossly intact. Ear canals and tympanic membranes are within normal limits. MOUTH: Oropharynx within normal limits. NECK: Supple, trachea is midline, no adenopathy, no JVD, no carotid bruit, no c- spine tenderness, neck with full ROM. CHEST: Symmetric, no tenderness at palpation LUNGS: Clear to auscultation bilaterally. No wheezing or crackles. CVS: Regular rate and rhythm, S1 and S2 present, no murmurs or gallops appreciated. ABDOMEN: Soft, non-tender. No signs of distention. No rebound no guarding, and no masses palpated. Bowel sounds are normal. EXTREMITIES: FROM in all major joints, no edema, no cyanosis or clubbing. NEURO: Alert and oriented x 3. No acute neurological deficits. Speech is normal and follows commands. SKIN: Dry and warm Triage Information Reviewed: Yes Vital Signs On Initial Exam: Initial Vitals Temp Pulse Resp BP Pulse Ox 98.4 F 103 18 154/88 97 03/07/18 18:24 03/07/18 18:24 03/07/18 18:24 03/07/18 18:24 03/07/18 18:24 Vital Signs Reviewed: Yes Diagnostics - Vital Signs Vital Signs Temp Pulse Resp BP Pulse Ox 03/07/18 18:24 98.4 F 103 18 154/88 97 - Laboratory Result Diagrams: 03/07/18 19:27 03/07/18 19:27 Lab Statement: Any lab studies that have been ordered have been reviewed, and results considered in the medical decision making process. Course/Dx - Course Assessment/Plan: Pt is a 57 y/o male who presents to the ED c/o intoxication. He was at [facility] for a voluntary alcohol detox initially , but he changed his mind. Pt smells of alcohol and marijuana. He states that he hasnt had alcohol in 4 hours. Pt also notes 7 pattie in his head, put there 2 days ago, and he requests for them to be removed. He denies any CP or SOB. PMHx bipolar disorder, depression, and alcohol abuse. Blood work without any significant abnormality except for chronic anemia. Alcohol level is 328. Patient is sleeping comfortable in the stretcher. The patient will be signed out to Dr. Harris at shift change. - Diagnoses Provider Diagnoses: Alcohol intoxication Discharge - Sign-Out/Discharge Documenting (check all that apply): Sign-Out Patient Signing out patient TO: Bakari Harris - Discharge Plan Condition: Stable Disposition: HOME Patient Education Materials: Alcohol Intoxication (ED) Referrals: Jhon Talley MD [Primary Care Provider] - 2 Days Additional Instructions: RETURN TO THE EMERGENCY DEPARTMENT FOR NEW OR WORSENING SYMPTOMS - Attestation Statements Document Initiated by Ryannibe: Yes Documenting Scribe: Huma Lozano Provider For Whom Rosi is Documenting (Include Credential): Josué Love MD Scribe Attestation: IHuma, scribed for Josué Love MD on 03/08/18 at 2123. Scribe Documentation Reviewed: Yes Provider Attestation: The documentation as recorded by the scribeHuma accurately reflects the service I personally performed and the decisions made by me, Josué Love MD Status of Scribe Document: Viewed
[2018-03-07 19:38] LABS: Hematocrit 28 % (42-52); Hemoglobin 9.2 g/dl (14.0-18.0); Mean Corpuscular HGB Conc 33 g/dl (31-36); Mean Corpuscular Hemoglobin 32 pg (27-31); Mean Corpuscular Volume 98 fL (80-94); Mean Platelet Volume 7.3 fL (7.4-10.4); Platelet Count 214 10^3/ul (150-450); Red Blood Count 2.87 10^6/ul (4.00-5.40); Red Cell Distribution Width 18 % (10.5-15); White Blood Count 6.2 10^3/ul (3.5-10.8)
[2018-03-07 19:53] LABS: EGFR Non-African American 69.2 (>60)
[2018-03-07 20:17] LABS: ABS Basophils 0 10^3/ul (0-0.2); ABS Eosinophils 0.1 10^3/ul (0-0.6); ABS Lymphocytes 1.5 10^3/ul (1.0-4.8); ABS Monocytes 0.8 10^3/ul (0-0.8); ABS Neutrophils 3.9 10^3/ul (1.5-7.7); ABS Nucleated RBC 0 10^3/ul; Eosinophil % 1.6 %; Lymphocyte % 23.3 %; Nucleated Red Blood Cells % 0.2
[2018-03-07 21:32] LABS: Urine Appearance Clear; Urine Blood 1+ (Negative); Urine Color Yellow; Urine Ketones Negative (Negative); Urine Protein 1+(30 mg/dL) (Negative); Urine Red Blood Cell Trace(0-2/hpf) (Absent); Urine Specific Gravity 1.008 (1.010-1.030); Urine Urobilinogen Negative (Negative); Urine White Blood Cell Trace(0-5/hpf) (Absent)
--- NOTE | 2018-03-08 04:49 | ED ---
Progress - Progress Note Progress Note: Patient was signed out from Dr. Love upon shift change pending sobriety Course/Dx - Course Course Of Treatment: Patient was signed out from Dr. Love upon shift change pending sobriety. Patient will be discharge home with follow up with PCP. Patient is agreeable with this plan. - Diagnoses Provider Diagnoses: Alcohol intoxication Discharge - Sign-Out/Discharge Documenting (check all that apply): Patient Departure - Discharge home, Receiving Sign-Out Receiving patient FROM: Josué Love - Upon shift change pending sobriety - Discharge Plan Condition: Stable Disposition: HOME Patient Education Materials: Alcohol Intoxication (ED) Referrals: Jhon Talley MD [Primary Care Provider] - 2 Days Additional Instructions: RETURN TO THE EMERGENCY DEPARTMENT FOR NEW OR WORSENING SYMPTOMS - Attestation Statements Document Initiated by Scribe: Yes Documenting Scribe: Elise Orourke Provider For Whom Scribe is Documenting (Include Credential): Dr. Bakari Harris MD Scribe Attestation: I, Elise Orourke, scribed for Dr. Bakari Harris MD on 03/08/18 at 0611. Status of Scribe Document: Ready
[2018-03-08 06:20] VITALS: BP 181/97
== END 2018-03-08 06:20 | disposition home or self-care (01) ==
LOC: ED 18:20
DX: F10.120 Alcohol abuse with intoxication, uncomplicated (principal); Z88.8 Allergy status to other drugs, medicaments and biological substances; Z72.0 Tobacco use
CPT/HCPCS: 36415; 80053; 80307; 80320; 80329; 81003; 81015; 84443; 85025; 87086; 99283; G0480

== ENCOUNTER 2018-03-09 19:42 | Emergency (ER) | payer OTHER, MEDICAID ==
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
--- NOTE | 2018-03-09 23:55 | PN ---
Progress Note - Progress Note Date of Service: 03/09/18 Note: Excepted sign out by Desire Landa at 11:15 PM on 03/09/18 Patient awoke at 11:30 PM, requesting discharge. He denies any pain currently. He is ambulating well and taking PO intake. Volar splint applied. [place] removed. Patient is discharged in good condition. Lungs CTA, RRR. Disposition: Home Condition: Good
[2018-03-10 00:50] VITALS: BP 133/75
== END 2018-03-10 00:44 | disposition home or self-care (01) ==
LOC: ED 19:42
DX: S52.502A Unspecified fracture of the lower end of left radius, initial encounter for closed fracture (principal); Z48.02 Encounter for removal of sutures; X58.XXXA Exposure to other specified factors, initial encounter; Y92.9 Unspecified place or not applicable; R60.0 Localized edema; F10.129 Alcohol abuse with intoxication, unspecified; F17.210 Nicotine dependence, cigarettes, uncomplicated
CPT/HCPCS: 99284

== ENCOUNTER 2018-03-15 23:41 | Emergency (ER) | payer OTHER, MEDICAID ==
--- NOTE | 2018-03-15 23:51 | ED ---
Complex/Multi-Sys Presentation - HPI Summary HPI Summary: 57 year old M brought in by ambulance to [facility] complains of right shoulder pain s/p falling out of bed since two hours ago. The patient rates the pain 8/10 in severity. Symptoms aggravated by nothing. Symptoms alleviated by nothing. Patient is also intoxicated. - History Of Current Complaint Hx Obtained From: Patient Onset/Duration: Lasting Hours - 2, Still Present Timing: Constant Aggravating Factor(s): Nothing Alleviating Factor(s): Nothing Associated Signs And Symptoms: Positive: Other - intoxication - Allergies/Home Medications Allergies/Adverse Reactions: Allergies Allergy/AdvReac Type Severity Reaction Status Date / Time allopurinol Allergy See Comment Verified 12/03/17 12:27 PMH/Surg Hx/FS Hx/Imm Hx Previously Healthy: No Endocrine/Hematology History: Denies: Hx Anticoagulant Therapy Cardiovascular History: Reports: Hx Hypertension - lisinopril? Respiratory History: Denies: Hx Asthma, Hx Bronchopulmonary Dysplasia, Hx Chronic Bronchitis, Hx Chronic Obstructive Pulmonary Disease (COPD), Hx Cystic Fibrosis, Hx Lung Cancer , Hx Pleural Effusion, Hx Pneumonia, Hx Pulmonary Edema, Hx Pulmonary Embolism, Hx Seasonal Allergies, Hx Sleep Apnea, Other Respiratory Problems/Disorders GI History: Reports: Hx Gastroesophageal Reflux Disease, Hx Ulcer - possibly has had in past, pt unclear Denies: Hx Cirrhosis, Hx Gall Bladder Disease Musculoskeletal History: Reports: Hx Gout Psychiatric History: Reports: Hx Depression, Hx Bipolar Disorder, Hx Substance Abuse - alcohol Denies: Hx Eating Disorder, Hx of Violent Episodes Against Others - Cancer History Cancer Type, Location and Year: None - Surgical History Surgery Procedure, Year, and Place: None Infectious Disease History: Denies: Traveled Outside the [place] in Last 30 Days - Family History Known Family History: Positive: Diabetes - father - Social History Alcohol Use: Daily Alcohol Amount: 100oz of 8% beer/sometimes vodka Hx Substance Use: Yes Substance Use Type: Reports: Cocaine, Marijuana Substance Use Comment - Amount & Last Used: crack cocaine Hx Tobacco Use: Yes - pt states he's a someday smoker Smoking Status (MU): Light Every Day Tobacco Smoker Review of Systems Positive: Other - right shoulder pain Psychological: Other - intoxicated All Other Systems Reviewed And Are Negative: Yes Physical Exam - Summary Physical Exam Summary: Appearance: Appears intoxicated Skin: Warm, dry, no obvious rash Eyes: sclera anicteric, no conjunctival pallor ENT: mucous membranes moist Neck: deferred Respiratory: No signs of respiratory distress Cardiovascular: Appears well perfused, pulses are nml Abdomen: deferred Musculoskeletal: Patient is moving his shoulder quite well. There are no external signs of injury Neurological: Awake and alert, mentation is normal, speech is fluent and appropriate Psychiatric: affect is normal, does not appear anxious or depressed Triage Information Reviewed: Yes Vital Signs Reviewed: Yes Diagnostics - Laboratory Lab Statement: Any lab studies that have been ordered have been reviewed, and results considered in the medical decision making process. - Radiology Shoulder Radiology Interpretation Completed By: ED Physician Summary of Radiographic Findings: Normal. Pending official report. Complex Multi-Symp Course/Dx Course Of Treatment: 57 year old M brought in by ambulance to [facility] complains of right shoulder pain s/p falling out of bed since two hours ago. Patient reports is also intoxicated. Shoulder x-ray was normal. Patient was given Ativan in ED course. He will be discharged once sober. Discussed discharge plan with patient who is now sober. He was given follow up instructions and told to return to ED for new or worsening symptoms. He is agreeable to discharge. - Diagnoses Provider Diagnoses: Alcohol intoxication Discharge - Sign-Out/Discharge Documenting (check all that apply): Patient Departure - Discharge - Discharge Plan Condition: Improved Disposition: HOME Patient Education Materials: Alcohol Intoxication (ED), Abuse of Alcohol (ED) Referrals: Jhon Talley MD [Primary Care Provider] - If Needed - Attestation Statements Document Initiated by Scribe: Yes Documenting Scribe: Jacqui Mcqueen Provider For Whom Scribe is Documenting (Include Credential): Rajan Simmons MD Scribe Attestation: Jacqui Will, scribed for Rajan Simmons MD on 03/16/18 at 0626. Status of Scribe Document: Ready
[2018-03-16] MEDS ORDERED: LORazepam TAB(*) 1 MG PO ONE (01:13)
[2018-03-16 06:33] VITALS: BP 144/86
--- NOTE | 2018-03-16 18:56 | ED ---
Progress - Progress Note Progress Note: Patient's final x-ray read reveals osteoarthritis as well as narrowing of the acromiohumeral interval suggestive of chronic rotator cuff injury no acute osseous injury. Patient was diagnosed with a "normal" shoulder x-ray. Attempted to contact patient to update results however treatment plan may not change. Unable to leave message as his phone number is not working. Will mail letter to update results. Carmelo gastelum aware. Course/Dx - Course Course Of Treatment: 57 year old M brought in by ambulance to [facility] complains of right shoulder pain s/p falling out of bed since two hours ago. Patient reports is also intoxicated. Shoulder x-ray was normal. Patient was given Ativan in ED course. He will be discharged once sober. Discussed discharge plan with patient who is now sober. He was given follow up instructions and told to return to ED for new or worsening symptoms. He is agreeable to discharge. - Diagnoses Provider Diagnoses: Alcohol intoxication Discharge - Sign-Out/Discharge Documenting (check all that apply): Post-Discharge Follow Up - Discharge Plan Condition: Improved Disposition: HOME Patient Education Materials: Alcohol Intoxication (ED), Abuse of Alcohol (ED) Referrals: Jhon Talley MD [Primary Care Provider] - If Needed - Billing Disposition and Condition Condition: IMPROVED Disposition: Home
== END 2018-03-16 06:32 | disposition home or self-care (01) ==
LOC: ED 23:41
DX: F10.120 Alcohol abuse with intoxication, uncomplicated (principal); M25.511 Pain in right shoulder; M19.011 Primary osteoarthritis, right shoulder; Z88.8 Allergy status to other drugs, medicaments and biological substances; Z72.0 Tobacco use
CPT/HCPCS: 99283; A9270-GY

== ENCOUNTER 2018-03-31 05:49 | Observation (INO) | payer OTHER, MEDICAID ==
[2018-03-31] MEDS ORDERED: Famotidine TAB* 20 MG PO ONE (07:28)
--- NOTE | 2018-03-31 09:02 | ED ---
Substance Abuse/Use - HPI Summary HPI Summary: Patient is a 57-year-old male with history of alcoholism and alcohol abuse who is well-known to [place] [facility] [place] He called EMS this morning stating he drank too much and was dehydrated and wants to be brought to the ED. On arrival, he is pleasant and alert, stating "I want a banana bag and a blood draw." Gait slightly unsteady. Endorses right shoulder pain for a shoulder dislocation previously. Declines pain medications on arrival. I have again offered (same as previous visits) to xray the shoulder, however he declines stating he has had xrays and MRI's. Denies any falls or hitting his head. Denies LOC. - History Of Current Complaint Stated Complaint: ETOH Time Seen by Provider: 03/31/18 05:50 Hx Obtained From: Patient Ingestion History: Type/Name Of Drug, Amount Ingested - 1L vodka Overdose Characteristics: Oral Timing Of Abuse: Daily Severity Initially: Moderate Severity Currently: Moderate Alleviating Factor(s): Nothing Associated Signs And Symptoms: Negative - Risk Factor(s) Completed Suicide Risk Factors: Male - Allergies/Home Medications Allergies/Adverse Reactions: Allergies Allergy/AdvReac Type Severity Reaction Status Date / Time allopurinol Allergy See Comment Verified 03/31/18 07:20 PMH/Surg Hx/FS Hx/Imm Hx Previously Healthy: Yes Endocrine/Hematology History: Denies: Hx Anticoagulant Therapy Cardiovascular History: Reports: Hx Hypertension - lisinopril? Respiratory History: Denies: Hx Asthma, Hx Bronchopulmonary Dysplasia, Hx Chronic Bronchitis, Hx Chronic Obstructive Pulmonary Disease (COPD), Hx Cystic Fibrosis, Hx Lung Cancer , Hx Pleural Effusion, Hx Pneumonia, Hx Pulmonary Edema, Hx Pulmonary Embolism, Hx Seasonal Allergies, Hx Sleep Apnea, Other Respiratory Problems/Disorders GI History: Reports: Hx Gastroesophageal Reflux Disease, Hx Ulcer - possibly has had in past, pt unclear Denies: Hx Cirrhosis, Hx Gall Bladder Disease Musculoskeletal History: Reports: Hx Gout Psychiatric History: Reports: Hx Depression, Hx Bipolar Disorder, Hx Substance Abuse - alcohol Denies: Hx Eating Disorder, Hx of Violent Episodes Against Others - Cancer History Cancer Type, Location and Year: None - Surgical History Surgery Procedure, Year, and Place: None - Immunization History Hx Pertussis Vaccination: No Immunizations Up to Date: Yes Infectious Disease History: No Infectious Disease History: Denies: Traveled Outside the [place] in Last 30 Days - Family History Known Family History: Positive: Diabetes - father - Social History Occupation: Unemployed Lives: Alone Alcohol Use: Daily Alcohol Amount: 100oz of 8% beer/sometimes vodka Hx Substance Use: Yes Substance Use Type: Reports: Cocaine, Marijuana Substance Use Comment - Amount & Last Used: crack cocaine Hx Tobacco Use: Yes - pt states he's a someday smoker Smoking Status (MU): Light Every Day Tobacco Smoker Review of Systems Constitutional: Negative Negative: Fever, Chills, Fatigue, Skin Diaphoresis Negative: Palpitations, Chest Pain Negative: Shortness Of Breath, Cough Genitourinary: Negative Positive: no symptoms reported, see HPI Positive: Arthralgia - right shoulder pain - baseline Negative: Rash, Bruising Neurological: Negative All Other Systems Reviewed And Are Negative: Yes Physical Exam Triage Information Reviewed: Yes Vital Signs On Initial Exam: Initial Vitals Temp Pulse Resp BP Pulse Ox 98.6 F 90 18 153/79 98 03/31/18 05:56 03/31/18 05:56 03/31/18 05:56 03/31/18 05:56 03/31/18 05:56 Vital Signs Reviewed: Yes Appearance: Positive: Well-Appearing, Well-Nourished Skin: Positive: Warm, Skin Color Reflects Adequate Perfusion Head/Face: Positive: Normal Head/Face Inspection Eyes: Positive: CECILIA, Conjunctiva Clear Neck: Positive: Supple, No Lymphadenopathy Respiratory/Lung Sounds: Positive: Clear to Auscultation, Breath Sounds Present Cardiovascular: Positive: RRR, Pulses are Symmetrical in both Upper and Lower Extremities Musculoskeletal: Positive: Normal, Strength/ROM Intact - Full ROM without limitations Neurological: Positive: Speech Normal Psychiatric: Positive: Normal, Affect/Mood Appropriate Diagnostics - Vital Signs Vital Signs Temp Pulse Resp BP Pulse Ox 03/31/18 07:35 92 155/87 98 03/31/18 06:56 119/56 03/31/18 06:26 127/60 03/31/18 06:00 102 99 03/31/18 05:56 98.6 F 90 18 153/79 98 - Laboratory Lab Results: Lab Results 03/31/18 Range/Units 06:08 Serum Alcohol 366 H (<10) mg/dL Result Diagrams: 03/31/18 13:22 03/31/18 13:22 Lab Statement: Any lab studies that have been ordered have been reviewed, and results considered in the medical decision making process. Course/Dx - Course Course Of Treatment: Alcohol 366. Patient is ambulating, however unsteady. He endorses right shoulder pain from a right shoulder dislocation several months ago, but declines any ibuprofen or Tylenol. Patient denies any recent falls or LOC or hitting his head. He states he would like a blood draw and a banana bag. He is given PO water. Drinking OK. Called Dr. Navarro for a CDU stay until sober in 11 hours per calculation. - Diagnoses Differential Diagnosis/HQI/PQRI: Positive: Alcohol Abuse Provider Diagnoses: Alcohol abuse, Shoulder pain Discharge - Sign-Out/Discharge Documenting (check all that apply): Patient Departure - Discharge Plan Condition: Stable Disposition: ADMITTED TO [facility] - Billing Disposition and Condition Condition: STABLE Disposition: Admitted to [facility]
[2018-03-31] MEDS ORDERED: Al Hydrox/Mg Hydrox/Simet LIQ* 30 ML UDC PO PRN (10:29)
[2018-03-31] MEDS ORDERED: Thiamine IV 100 MG, Folic Acid IV* 1 MG, Multiple Vitamin IV ADULT* 10 ML in D5NS 0.9% ... IV ONE (10:30)
[2018-03-31] MEDS: Omeprazole CAP* 20 MG PO SCH (11:57)
[2018-03-31] MEDS: Lisinopril TAB* 10 MG PO SCH (11:57)
[2018-03-31] MEDS ORDERED: Acetaminophen TAB* 325 MG PO PRN (12:45)
[2018-03-31] MEDS ORDERED: Ondansetron ODT TAB* 4 MG SL PRN (12:48)
[2018-03-31] MEDS ORDERED: LORazepam TAB(*) 1 MG PO SCH (13:00)
[2018-03-31] MEDS: Heparin VIAL(*) 5000 UNITS/ML VIAL (FIVE THOUSAND) SUBCUT SCH ×2 (13:05→21:36)
[2018-03-31] MEDS: Cyclobenzaprine TAB* 10 MG PO SCH ×3 (13:06→21:34)
[2018-03-31] MEDS: Sucralfate TAB* 1 GM PO SCH ×2 (13:06→21:33)
[2018-03-31 13:30] LABS: ABS Basophils 0.1 10^3/ul (0-0.2); ABS Eosinophils 0 10^3/ul (0-0.6); ABS Lymphocytes 1.7 10^3/ul (1.0-4.8); ABS Monocytes 0.4 10^3/ul (0-0.8); ABS Neutrophils 1.7 10^3/ul (1.5-7.7); ABS Nucleated RBC 0 10^3/ul; Eosinophil % 0.8 %; Hematocrit 30 % (42-52); Hemoglobin 9.9 g/dl (14.0-18.0); Lymphocyte % 43.3 %; Mean Corpuscular HGB Conc 33 g/dl (31-36); Mean Corpuscular Hemoglobin 32 pg (27-31); Mean Corpuscular Volume 97 fL (80-94); Mean Platelet Volume 6.5 fL (7.4-10.4); Nucleated Red Blood Cells % 0.1; Platelet Count 480 10^3/ul (150-450); Red Blood Count 3.09 10^6/ul (4.00-5.40); Red Cell Distribution Width 17 % (10.5-15); White Blood Count 3.9 10^3/ul (3.5-10.8)
[2018-03-31 13:47] LABS: Albumin 3.9 g/dL (3.2-5.2); Albumin/Globulin Ratio 1.2 (1-3); BUN/Creatinine Ratio 19.8 (8-20); EGFR Non-African American 67.8 (>60); Globulin 3.2 g/dL (2-4); Potassium 4.2 mmol/L (3.5-5.0); Total Bilirubin 0.2 mg/dL (0.2-1.0); Total Protein 7.1 g/dL (6.4-8.9)
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
[2018-03-31] MEDS ORDERED: traZODone TAB* 100 MG PO SCH (21:00)
[2018-03-31] MEDS: Famotidine TAB* 20 MG PO SCH (21:34)
[2018-04-01] MEDS: Heparin VIAL(*) 5000 UNITS/ML VIAL (FIVE THOUSAND) SUBCUT SCH ×2 (06:48→14:03)
[2018-04-01] MEDS: Lisinopril TAB* 10 MG PO SCH (08:30)
[2018-04-01] MEDS: Sucralfate TAB* 1 GM PO SCH ×2 (08:31→14:02)
[2018-04-01] MEDS: Cyclobenzaprine TAB* 10 MG PO SCH ×3 (08:31→17:39)
[2018-04-01] MEDS: Omeprazole CAP* 20 MG PO SCH (08:32)
[2018-04-01] MEDS: Famotidine TAB* 20 MG PO SCH (08:32)
[2018-04-01] MEDS ORDERED: Folic Acid TAB* 1 MG PO SCH (09:00)
[2018-04-01] MEDS ORDERED: Thiamine TAB* 100 MG TAB PO SCH (09:00)
[2018-04-01] MEDS ORDERED: Multivitamins/Minerals TAB PO SCH (09:00)
--- NOTE | 2018-04-01 09:25 | PN ---
Subjective Date of Service: 04/01/18 Interval History: Received 2mg ativan last night. Feels good this morning. Has no complaints. Appetite is good, no nausea, no hallucinations, no anxiety. Objective Active Medications: Acetaminophen (Tylenol Tab*) 650 mg PO Q4H PRN PRN Reason: PAIN Al Hydrox/Mg Hydrox/Simethicone (Maalox Plus*) 30 ml PO Q6H PRN PRN Reason: DYSPEPSIA Cyclobenzaprine HCl (Flexeril Tab*) 10 mg PO QID [facility] Last Admin: 04/01/18 08:31 Dose: 10 mg Famotidine (Pepcid Tab*) 20 mg PO BID [facility] Last Admin: 04/01/18 08:32 Dose: 20 mg Folic Acid (Folvite Tab*) 1 mg PO DAILY [facility] Last Admin: 04/01/18 08:32 Dose: 1 mg Heparin Sodium (Porcine) (Heparin Vial(*)) 5,000 units SUBCUT Q8HR [facility] Last Admin: 04/01/18 06:48 Dose: 5,000 units Lisinopril (Prinivil Tab*) 20 mg PO DAILY [facility] Last Admin: 04/01/18 08:30 Dose: 20 mg Lorazepam (Ativan Tab(*)) 0 - 6 mg PO .PER [facility] PROTOCOL [facility]; Protocol Last Admin: 03/31/18 21:32 Dose: 2 mg Multivitamins/Minerals (Theragran/Minerals Tab*) 1 tab PO DAILY [facility] Last Admin: 04/01/18 08:33 Dose: 1 tab Omeprazole (Prilosec Cap*) 20 mg PO DAILY@0730 [facility] Last Admin: 04/01/18 08:32 Dose: 20 mg Ondansetron HCl (Zofran Odt Tab*) 4 mg SL Q6H PRN PRN Reason: NAUSEA/VOMITING Sucralfate (Carafate*) 1 gm PO TID [facility] Last Admin: 04/01/18 08:31 Dose: 1 gm Thiamine HCl (Vitamin B-1 Tab*) 100 mg PO DAILY [facility] Last Admin: 04/01/18 08:30 Dose: 100 mg Trazodone HCl (Desyrel Tab*) 100 mg PO BEDTIME [facility] Last Admin: 03/31/18 21:31 Dose: 100 mg Vital Signs - 8 hr 04/01/18 04/01/18 04/01/18 02:34 04:44 05:54 Temperature 98.1 F 97.9 F 97.5 F Pulse Rate 67 67 60 Respiratory 18 18 18 Rate Blood Pressure 148/72 158/79 145/80 (mmHg) O2 Sat by Pulse 100 99 99 Oximetry 04/01/18 04/01/18 04/01/18 08:00 08:05 08:31 Temperature 97.7 F Pulse Rate 62 Respiratory 16 16 16 Rate Blood Pressure 152/78 (mmHg) O2 Sat by Pulse 100 Oximetry Oxygen Devices in Use Now: None Appearance: alert, calm, nontoxic. oriented x 3. Eyes: No Scleral Icterus Ears/Nose/Mouth/Throat: NL Teeth, Lips, Gums Neck: NL Appearance and Movements; NL JVP Respiratory: Symmetrical Chest Expansion and Respiratory Effort Cardiovascular: NL Sounds; No Murmurs; No JVD Abdominal: NL Sounds; No Tenderness; No Distention Lymphatic: No Cervical Adenopathy Extremities: No Edema Skin: No Rash or Ulcers Neurological: Alert and Oriented x 3, - - no asterixis, no tremor Result Diagrams: 03/31/18 13:22 03/31/18 13:22 Additional Lab and Data: Lab Results 03/31/18 Range/Units 06:08 Serum Alcohol 366 H (<10) mg/dL Assess/Plan/Problems-Billing Assessment: This is a 57 year old man with history of alcohol dependence and bipolar disorder who presented to the ED in alcohol withdrawal - Patient Problems (1) Alcohol withdrawal Current Visit: Yes Status: Acute Code(s): F10.239 - ALCOHOL DEPENDENCE WITH WITHDRAWAL, UNSPECIFIED SNOMED Code(s): 243194697 Comment: It remains unclear to me why he decided to stop drinking. He is doing well and requiring decreasing doses of ativan. He tells me he wants to stay sober. Continue [facility] Plan for discharge when he is no longer requiring ativan per the [facility] protocol
[2018-04-01 17:15] VITALS: BP 159/79
--- NOTE | 2018-04-02 21:00 | DS ---
CC: Jhon Talley M.D. in [facility]. * DISCHARGE SUMMARY: DATE OF ADMISSION: 03/31/18 DATE OF DISCHARGE: 04/01/18 PRINCIPAL DISCHARGE DIAGNOSIS: Alcohol dependence. SECONDARY DISCHARGE DIAGNOSES: 1. Hypertension. 2. Bipolar disorder. HOSPITAL COURSE BY PROBLEM: 1. Concern for alcohol withdrawal. Mr. Rodrigues presented to the ED because he was worried about withdrawing from alcohol and in the ED, his serum alcohol level was 366. He was placed on folate, thiamine, and a multivitamin, and was placed on the W[facility] protocol. He required a very little Ativan and on the day of discharge, he had not required Ativan for 16 hours. Social Work was consulted, but Mr. Rodrigues was not willing to speak with them. At the time of discharge, he is mentating very clearly and expresses interest in being discharged. I am sending him with followup with [facility] and the [facility]. He is to see Dr. Talley by the end of the week. 2. Hypertension. He was continued on his home antihypertensives. 3. Bipolar disorder. He is not on any medications and his mood was stable during admission. TIME SPENT: Forty minutes was spent on this discharge. [id number]/[facility] #: [id number] SAKSHI
== END 2018-04-01 15:00 | disposition home or self-care (01) ==
LOC: ED 05:49 → MED 10:28
PROVIDERS: ADMIT Internal Medicine; ATTEND Internal Medicine
DX: F10.20 Alcohol dependence, uncomplicated (principal); I10 Essential (primary) hypertension; F31.9 Bipolar disorder, unspecified; F17.210 Nicotine dependence, cigarettes, uncomplicated; Y90.8 Blood alcohol level of 240 mg/100 ml or more
CPT/HCPCS: 36415; 80053; 80320; 85025; 96372; 96374; 99284; A9270-GY; G0378; G0480; J1644; J3411

== ENCOUNTER 2018-04-20 05:01 | Emergency (ER) | payer MEDICARE, MEDICAID ==
--- OUTSIDE RECORDS SUMMARY | 2018-04-20 05:08 | XMS REPORT | Continuity of Care Document ---
:1960 External Reference #:[id number] Author Name Adelina Musa Care Team Providers Name Role Phone Patient's Choice Primary Care Physician Unavailable Payers Type Date Identification Numbers Payment Provider Subscriber Policy Number: [id number] [employer] Teo Arce PayID: [id number] [address] [place] [address] Policy Number: [id number] Medicaid Teo Arce Group Name: 1 1 [address] PayID: [id number] [place] [address] Advance Directives Description No Information Available Problems Date Description Provider Status Onset: 10/19/2017 Pain in left arm Jhon Talley MD Active Onset: 10/19/2017 Screening for malignant neoplasm of colon Jhon Talley MD Active Onset: 10/19/2017 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 Jhon Talley MD Active Onset: 10/19/2017 Gout Jhon Talley MD Active Onset: 10/19/2017 Essential hypertension Jhon Talley MD Active Onset: 10/19/2017 Bipolar disorder Jhon Talley MD Active Onset: 10/19/2017 Alcohol-induced psychosis Jhon Talley MD Active Onset: 10/19/2017 Pain in limb Jhon Talley MD Active Family History Description No Information Available Social History Type Date Description Comments Sex Unknown Tobacco Use Start: Unknown Light tobacco smoker (10 or fewer cigarettes/day) Smoking Status Reviewed: 04/08/18 Light tobacco smoker (10 or fewer cigarettes/day) Allergies, Adverse Reactions, Alerts Date Description Reaction Status Severity Comments 10/17/2017 Allopurinol Active Medications Medication Date Status Form Strength Qnty SIG Indications Ordering Provider Hydrochlorothiazi 04/08 Active Tablets 25mg 30tab 1 by mouth I10 Amanda s every day Senaury, Joint Support 11/06 Active Capsules 30cap 1 tab Amanda s every day Senner, DO Glucosamine 1500 10/26 Active Capsules 1500Com 30cap 1 tab Amanda s every day Senner, DO Trazodone HCL Active Tablets 100mg 1 tablet Unknown /0000 at bedtime Indomethacin Active Capsules 50mg 60cap 1 capsule Amanda s by mouth Senner, three DO times a day as needed Maalox Plus Active Suspension 400-400-4 30 Unknown /0000 0mg/5ML milliliter s every 6 hours as needed indigestio n, Folic Acid Active Tablets 1mg 30tab 1 by mouth Amanda /0000 s every day Senner, DO Famotidine Active Tablets 20mg 30tab 1 by mouth Amanda /0000 s every day Senner, DO Omeprazole Hx Capsules DR 20mg 1 by mouth Unknown /0000 every day - 10/18 Lisinopril Hx Tablets 20mg 30tab 1 by mouth Amanda /0000 s every day Senner, - DO 04/08 Cyclobenzaprine Hx Tablets 10mg 1 tablet Unknown HCL /0000 by mouth - q6 hours 10/18 Immunizations Description No Information Available Vital Signs Date Vital Result Comment 04/08/2018 9:16am Weight 164.00 lb Heart Rate 80 /min BP Systolic 140 mmHg BP Diastolic 94 mmHg Respiratory Rate 16 /min Body Temperature 98.2 F 10/19/2017 9:37am Height 71 inches 5'11" Weight 162.00 lb [...] BMI (Body Mass Index) 22.6 kg/m2 Results Test Date Facility Test Result H/L Range Note Laboratory test 03/31/2018 [facility] Alcohol 366 mg/dL High < [address] [place] [address] [phone] Comp Metabolic Panel 03/07/2018 [facility] Sodium 139 mmol/L N 135-145 [address] [place] [address] [phone] Potassium 3.9 mmol/L N 3.5-5.0 Chloride 108 mmol/L N 101-111 Co2 Carbon Dioxide 21 mmol/L Low 22-32 Anion Gap 10 mmol/L N 2-11 Glucose 105 mg/dL High 70-100 Blood Urea Nitrogen 21 mg/dL N 6-24 Creatinine 1.09 mg/dL N 0.67-1.17 BUN/Creatinine Ratio 19.3 N 8-20 Calcium 9.2 mg/dL N 8.6-10.3 Total Protein 7.2 g/dL N 6.4-8.9 Albumin 4.1 g/dL N 3.2-5.2 Globulin 3.1 g/dL N 2-4 Albumin/Globulin Ratio 1.3 N 1-3 Total Bilirubin 0.30 mg/dL N 0.2-1.0 Alkaline Phosphatase 65 U/L N 34-104 Alt 15 U/L N 7-52 Ast 35 U/L N 13-39 Egfr Non- 69.2 >60 Egfr 83.8 >60 1 Laboratory test 03/07/2018 [facility] Acetaminophen < 15 g/mL [address] [place] [address] [phone] Alcohol 328 mg/dL High <10 Salicylate < 2.50 mg/dL <30 TSH (Thyroid Stim Horm) 0.98 mcIU/mL N 0.34-5.60 CBC Auto Diff 03/07/2018 [facility] White Blood 6.2 10^3/uL N 3.5-10.[address] [place] [address] [phone] Red Blood Count 2.87 10^6/uL Low 4.00-5.40 Hemoglobin 9.2 g/dL Low 14.0-18.0 Hematocrit 28 % Low 42-52 Mean Corpuscular Volume 98 fL High 80-94 Mean Corpuscular Hemoglobin 32 pg High 27-31 Mean Corpuscular HGB Conc 33 g/dL N 31-36 Red Cell Distribution Width 18 % High 10.5-15 Platelet Count 214 10^3/uL N 150-450 Mean Platelet Volume 7.3 fL Low 7.4-10.4 Abs Neutrophils 3.9 10^3/uL N 1.5-7.7 Abs Lymphocytes 1.5 10^3/uL N 1.0-4.8 Abs Monocytes 0.8 10^3/uL N 0-0.8 Abs Eosinophils 0.1 10^3/uL N 0-0.6 Abs Basophils 0 10^3/uL N 0-0.2 Abs Nucleated RBC 0 10^3/uL Granulocyte % 62.6 % Lymphocyte % 23.3 % Monocyte % 12.0 % Eosinophil % 1.6 % Basophil % 0.5 % Nucleated Red Blood Cells % 0.2 Cell Morphology 03/07/2018 [facility] Hypochromasia 1+ [address] [place] [address] [phone] Urinalysis Profile 03/07/2018 [facility] Urine Color Yellow [address] [place] [address] [phone] Urine Appearance Clear Urine Specific [place] 1.008 Low 1.010-1.030 Urine pH 5.0 N 5-9 Urine Urobilinogen Negative Negative Urine Ketones Negative Negative Urine Protein 1+(30 mg/dL) Abnormal Negative Urine Leukocytes Negative Negative Urine Blood 1+ Abnormal Negative Urine Nitrite Negative Negative Urine Bilirubin Negative Negative Urine Glucose Negative Negative Urine White Blood Cell Trace(0-5/hpf) Absent Urine Red Blood Cell Trace(0-2/hpf) Absent Urine Bacteria Absent Absent Urine Hyaline Casts Present Abnormal Absent Urine Drug 03/07/2018 [facility] Amphetamine Ur None Detected None Detect SCR ED & [address] [place] [address] [phone] Barbiturates Urine Screen None Detected None Detect Benzodiazepine Urine Screen Presumptive Posi <SEE NOTE> Abnormal None Detect 3 Urine Cannabinoids Screen None Detected None Detect Urine Cocaine Screen Presumptive Posi <SEE NOTE> Abnormal None Detect 4 Urine Opiates Screen None Detected None Detect Urine Phencyclidine Screen None Detected None Detect 5 Urine Culture And 03/07/2018 [facility] Urine Culture SEE RESULT [address] [place] [address] [phone] CBC Auto Diff 12/10/2017 [facility] White Blood 4.6 10^3/uL N 3.5-[address] Count [address]8 [place] [address] [phone] Red Blood Count 3.04 10^6/uL Low 4.00-5.40 Hemoglobin 9.9 g/dL Low 14.0-18.0 Hematocrit 30 % Low 42-52 Mean Corpuscular Volume 99 fL High 80-94 Mean Corpuscular Hemoglobin 33 pg High 27-31 Mean Corpuscular HGB Conc 33 g/dL N 31-36 Red Cell Distribution Width 18 % High 10.5-15 Platelet Count 301 10^3/uL N 150-450 Mean Platelet Volume 7.1 um3 Low 7.4-10.4 Abs Neutrophils 2.1 10^3/uL N 1.5-7.7 Abs Lymphocytes 2.0 10^3/uL N 1.0-4.8 Abs Monocytes 0.4 10^3/uL N 0-0.8 Abs Eosinophils 0.1 10^3/uL N 0-0.6 Abs Basophils 0 10^3/uL N 0-0.2 Abs Nucleated RBC 0 10^3/uL Granulocyte % 44.6 % N 38-83 Lymphocyte % 43.5 % N 25-47 Monocyte % 9.0 % High 0-7 Eosinophil % 1.9 % N 0-6 Basophil % 1.0 % N 0-2 Nucleated Red Blood Cells % 0.1 Urinalysis Profile 12/10/2017 [facility] Urine Color Straw [address] [place] [address] [phone] Urine Appearance Clear Urine Specific [place] 1.005 Low 1.010-1.030 Urine pH 5.0 N 5-9 Urine Urobilinogen Negative Negative Urine Ketones Negative Negative Urine Protein 1+(30 mg/dL) Abnormal Negative Urine Leukocytes Negative Negative Urine Blood 1+ Abnormal Negative Urine Nitrite Negative Negative Urine Bilirubin Negative Negative Urine Glucose Negative Negative Urine White Blood Cell Absent Absent Urine Red Blood Cell Trace(0-2/hpf) Absent Urine Bacteria Absent Absent Urine Drug 12/10/2017 [facility] Amphetamine Ur None Detected None Detect SCR ED & [address] [place] [address] [phone] Barbiturates Urine Screen None Detected None Detect Benzodiazepine Urine Screen None Detected None Detect Urine Cannabinoids Screen None Detected None Detect Urine Cocaine Screen Presumptive Posi <SEE NOTE> Abnormal None Detect 7 Urine Opiates Screen None Detected None Detect Urine Phencyclidine Screen None Detected None Detect 8 Laboratory test 12/10/2017 [facility] Acetaminophen < 15 g/mL [address] [place] [address] [phone] Salicylate < 2.50 mg/dL <30 TSH (Thyroid Stim Horm) 1.59 mcIU/mL N 0.34-5.60 Comp Metabolic Panel 12/10/2017 [facility] Sodium 139 mmol/L N 135-145 [address] [place] [address] [phone] Potassium 4.6 mmol/L N 3.5-5.0 Chloride 106 mmol/L N 101-111 Co2 Carbon Dioxide 22 mmol/L N 22-32 Anion Gap 11 mmol/L N 2-11 Glucose 87 mg/dL N 70-100 Blood Urea Nitrogen 21 mg/dL N 6-24 Creatinine 1.08 mg/dL N 0.67-1.17 BUN/Creatinine Ratio 19.4 N 8-20 Calcium 9.3 mg/dL N 8.6-10.3 Total Protein 8.1 g/dL N 6.4-8.9 Albumin 4.5 g/dL N 3.2-5.2 Globulin 3.6 g/dL N 2-4 Albumin/Globulin Ratio 1.3 N 1-3 Total Bilirubin 0.30 mg/dL N 0.2-1.0 Alkaline Phosphatase 56 U/L N 34-104 Alt 26 U/L N 7-52 Ast 42 U/L High 13-39 Egfr Non- 70.0 >60 Egfr 84.7 >60 10 Laboratory test finding 12/10/2017 [facility] Alcohol 224 mg/dL High <10 [address] [place] [address] [phone] Uric Acid 11.5 mg/dL High 4.4-7.6 1 Because ethnic data is not always readily available, this report includes an eGFR for both -Americans and non- Americans. The National Kidney Disease Education Program (NKDEP) does not endorse the use of the MDRD equation for patients that are not between the ages of 18 and 70, are , have extremes of body size, muscle mass, or nutritional status, or are non- or non-. According to the National Kidney Foundation, irrespective of diagnosis, the stage of the disease is based on the level of kidney function: Stage Description GFR(mL/min/1.73 m(2)) 1 Kidney damage with normal or decreased GFR 90 2 Kidney damage with mild decrease in GFR 60-89 3 Moderate decrease in GFR 30-59 4 Severe decrease in GFR 15-29 5 Kidney failure <15 (or dialysis) 2 Therapeutic concentration: <50 ug/mL Toxic concentration: >120 ug/mL 3 Presumptive Positive Presumptive positive results are unconfirmed. 4 Presumptive Positive Presumptive positive results are unconfirmed. 5 The urine specimen was tested at the listed cutoffs: Drug class test level (ng/mL) Amphetamines 500 Barbiturates 200 Benzodiazepine metabolites 200 Cocaine metabolites 150 Cannabinoids 50 Opiates 300 Pcp 25 Specimen was received without chain of custody. Results should be used for medical purposes only. 6 SEE RESULT BELOW Name: TEO ARCE V : [address]: Josué Love MD Acct: [id number] Unit: [id number] AGE: 57 Location: ED Re03/07/18 SEX: M Status: DEP ER SPEC: [id number] ALVERTO: 03/07/18 [facility] DR: Josué Love MD REQ: [id number] RECD: 03/07/18 STATUS: RASHID RUBI DR: Jhon Talley MD _ SOURCE: URINE SPDESC: ORDERED: Urine Culture Procedure Result Reported Site Urine Culture Final 03/08/18- 1600 ML No Growth (<1,000 CFU/mL) * ML - Main Lab . END OF REPORT DEPARTMENT OF PATHOLOGY, [address] [place] [address] Chris Elizabeth M.D. Director [facility] # [id number] 7 Presumptive Positive Presumptive positive results are unconfirmed. 8 The urine specimen was tested at the listed cutoffs: Drug class test level (ng/mL) Amphetamines 500 Barbiturates 200 Benzodiazepine metabolites 200 Cocaine metabolites 150 Cannabinoids 50 Opiates 300 Pcp 25 Specimen was received without chain of custody. Results should be used for medical purposes only. 9 Therapeutic concentration: <50 ug/mL Toxic concentration: >120 ug/mL 10 Because ethnic data is not always readily available, this report includes an eGFR for both -Americans and non- Americans. The National Kidney Disease Education Program (NKDEP) does not endorse the use of the MDRD equation for patients that are not between the ages of 18 and 70, are , have extremes of body size, muscle mass, or nutritional status, or are non- or non-. According to the National Kidney Foundation, irrespective of diagnosis, the stage of the disease is based on the level of kidney function: Stage Description GFR(mL/min/1.73 m(2)) 1 Kidney damage with normal or decreased GFR 90 2 Kidney damage with mild decrease in GFR 60-89 3 Moderate decrease in GFR 30-59 4 Severe decrease in GFR 15-29 5 Kidney failure <15 (or dialysis) Procedures Description No Information Available Encounters Type Date Location Provider Dx Diagnosis Office Visit 04/08/2018 [facility] Amanda Bowers, F10.19 Alcohol abuse with 8:40a [facility] unspecified alcohol-induced disorder F31.9 Bipolar disorder, unspecified I10 Essential (primary) hypertension Office Visit 10/19/2017 [facility] Jhon Talley, F10.19 Alcohol abuse with 9:30a [facility] unspecified alcohol-induced disorder F31.9 Bipolar disorder, unspecified I10 Essential (primary) hypertension M10.9 Gout, unspecified Z12.11 Encounter for screening for malignant neoplasm of colon M79.602 Pain in left arm Plan of Treatment Future Appointment(s):04/29/2018 9:40 am - Amanda Bowers DO at [facility]04/08/2018 - Amanda Bowers DOF10.19 Alcohol abuse with unspecified alcohol-induced kywhpydwN92.9 Bipolar disorder, unspecifiedRef[facility][id number] Essential (primary) hypertensionNew Medication:Hydrochlorothiazide 25 mg - 1 by mouth every dayFollow up:Come back in 1-2 weeks to make sure blood pressure is okay on new medication and the cough has gone away
--- NOTE | 2018-04-20 05:23 | ED ---
Substance Abuse/Use - HPI Summary HPI Summary: This patient is a 57 year old M brought in by ambulance to [facility] with a chief complaint of EtOH intoxication since 04:00. Patient was found by Vandana HONG in hotel. Unsure who called EMS. Patient is known to the [facility] staff and has been seen multiple times for EtOH intoxication. The patient rates the pain 0/10 in severity. Symptoms aggravated by nothing. Symptoms alleviated by nothing. Hx EtOH abuse. - History Of Current Complaint Chief Complaint: EDSubstanceAbuse Stated Complaint: ETOH Time Seen by Provider: 04/20/18 05:12 Hx Obtained From: Patient Onset/Duration of Drug/ETOH Abuse: Hours Ingestion History: Type/Name Of Drug - EtOH Overdose Characteristics: Oral Timing Of Abuse: Daily Severity Initially: Mild Severity Currently: Mild Aggravating Factor(s): Nothing Alleviating Factor(s): Nothing - Allergies/Home Medications Allergies/Adverse Reactions: Allergies Allergy/AdvReac Type Severity Reaction Status Date / Time allopurinol Allergy See Comment Verified 03/31/18 07:20 PMH/Surg Hx/FS Hx/Imm Hx Endocrine/Hematology History: Denies: Hx Anticoagulant Therapy Cardiovascular History: Reports: Hx Hypertension - lisinopril? Respiratory History: Denies: Hx Asthma, Hx Bronchopulmonary Dysplasia, Hx Chronic Bronchitis, Hx Chronic Obstructive Pulmonary Disease (COPD), Hx Cystic Fibrosis, Hx Lung Cancer , Hx Pleural Effusion, Hx Pneumonia, Hx Pulmonary Edema, Hx Pulmonary Embolism, Hx Seasonal Allergies, Hx Sleep Apnea, Other Respiratory Problems/Disorders GI History: Reports: Hx Gastroesophageal Reflux Disease, Hx Ulcer - possibly has had in past, pt unclear Denies: Hx Cirrhosis, Hx Gall Bladder Disease Musculoskeletal History: Reports: Hx Gout Sensory History: Reports: Hx Contacts or Glasses Denies: Hx Hearing Aid Opthamlomology History: Reports: Hx Contacts or Glasses Psychiatric History: Reports: Hx Anxiety, Hx Depression, Hx Panic Disorder, Hx Community Mental Health Tx, Hx Bipolar Disorder, Hx Substance Abuse - alcohol Denies: Hx Attention Deficit Hyperactivity Disorder, Hx Eating Disorder, Hx Post Traumatic Stress Disorder, Hx Schizophrenia, Hx Suicide Attempt, Hx of Violent Episodes Against Others, Other Psychiatric Issues/Disorders Comment Only: Hx Inpatient Treatment - did not wish to disclose - Cancer History Cancer Type, Location and Year: None - Surgical History Surgery Procedure, Year, and Place: None Infectious Disease History: Unable to Obtain/Confirm Infectious Disease History: Denies: Traveled Outside the [place] in Last 30 Days - Family History Known Family History: Positive: Diabetes - father - Social History Alcohol Use: Daily Alcohol Amount: 100oz of 8% beer/sometimes vodka Hx Substance Use: Yes Substance Use Type: Reports: Cocaine, Marijuana Substance Use Comment - Amount & Last Used: crack cocaine Hx Tobacco Use: Yes - pt states he's a someday smoker Smoking Status (MU): Light Every Day Tobacco Smoker Review of Systems Negative: Fever Negative: Epistaxis Negative: Chest Pain Negative: Cough Neurological: Other - EtOH intoxication All Other Systems Reviewed And Are Negative: Yes Physical Exam - Summary Physical Exam Summary: VITAL SIGNS: Reviewed. GENERAL: Patient is a well-developed and nourished MALE who is lying comfortable in the stretcher. Patient is not in any acute respiratory distress. Pt is intoxicated HEAD AND FACE: No signs of trauma. No ecchymosis, hematomas or skull depressions. No sinus tenderness. EYES: PERRLA, EOMI x 2, No injected conjunctiva, no nystagmus. EARS: Hearing grossly intact. Ear canals and tympanic membranes are within normal limits. MOUTH: Oropharynx within normal limits. NECK: Supple, trachea is midline, no adenopathy, no JVD, no carotid bruit, no c- spine tenderness, neck with full ROM. CHEST: Symmetric, no tenderness at palpation LUNGS: Clear to auscultation bilaterally. No wheezing or crackles. CVS: Regular rate and rhythm, S1 and S2 present, no murmurs or gallops appreciated. ABDOMEN: Soft, non-tender. No signs of distention. No rebound no guarding, and no masses palpated. Bowel sounds are normal. EXTREMITIES: FROM in all major joints, no edema, no cyanosis or clubbing. NEURO: Alert and oriented x 3. No acute neurological deficits. Speech is normal and follows commands. SKIN: Dry and warm Triage Information Reviewed: Yes Vital Signs On Initial Exam: Initial Vitals Temp Pulse Resp BP Pulse Ox 97.8 F 100 16 146/86 100 04/20/18 05:05 04/20/18 05:05 04/20/18 05:05 04/20/18 05:05 04/20/18 05:05 Vital Signs Reviewed: Yes Diagnostics - Vital Signs Vital Signs Temp Pulse Resp BP Pulse Ox 04/20/18 05:05 97.8 F 100 16 146/86 100 - Laboratory Lab Statement: Any lab studies that have been ordered have been reviewed, and results considered in the medical decision making process. Course/Dx - Course Course Of Treatment: This patient is a 57 year old M brought in by ambulance to [facility] with a chief complaint of EtOH intoxication since 04:00. Patient was found by Vandana HONG in hotel. Unsure who called EMS. Patient is known to the [facility] staff and has been seen multiple times for EtOH intoxication. The patient rates the pain 0/10 in severity. Symptoms aggravated by nothing. Symptoms alleviated by nothing. Hx EtOH abuse.Patient is alert and oriented with steady gait. Patient wants to be discharged. Patient will be discharged home. The patient is agreeable with this plan. - Diagnoses Provider Diagnoses: Alcohol use Discharge - Sign-Out/Discharge Documenting (check all that apply): Patient Departure - discharge - Discharge Plan Condition: Stable Disposition: HOME Patient Education Materials: Alcohol Intoxication (ED) Referrals: Jhon Talley MD [Primary Care Provider] - Additional Instructions: Follow up with your primary care physician in 1-2 days. Return to the emergency department with any new or worsening symptoms. - Attestation Statements Document Initiated by Scribe: Yes Documenting Scribe: Danielle Clayton Provider For Whom Rosi is Documenting (Include Credential): Bakari Harris MD Scribe Attestation: Danielle Will scribed for Bakari Harris MD on 04/20/18 at 0618. Status of Scribe Document: Ready
[2018-04-20 06:37] VITALS: BP 129/107
== END 2018-04-20 06:46 | disposition home or self-care (01) ==
LOC: ED 05:01
DX: F10.129 Alcohol abuse with intoxication, unspecified (principal); I10 Essential (primary) hypertension
CPT/HCPCS: 99284

== ENCOUNTER 2018-07-17 04:01 | Emergency (ER) | payer MEDICARE, MEDICAID ==
[2018-07-17] MEDS ORDERED: Lidocaine 2% VISCOUS* 15 ML UDC PO ONE (04:18)
[2018-07-17] MEDS ORDERED: Al Hydrox/Mg Hydrox/Simet LIQ* 30 ML UDC PO ONE (04:18)
--- NOTE | 2018-07-17 04:19 | ED ---
Abdominal Pain/Male - HPI Summary HPI Summary: This patient is a 57 year old M brought in by ambulance to [facility] with a chief complaint of epigastric abdominal pain since 3 days ago. Patient denies vomiting. Patient reports occasional cigarette use. - History of Current Complaint Chief Complaint: EDAbdPain Stated Complaint: ETOH/ABD PAIN PER EMS Time Seen by Provider: 07/17/18 04:05 Hx Obtained From: Patient Onset/Duration: Lasting Days - 3 days, Still Present Timing: Constant Severity Currently: Moderate Pain Intensity: 5 Pain Scale Used: 0-10 Numeric Location: Epigastric Associated Signs And Symptoms: Negative: Vomiting - Allergies/Home Medications Allergies/Adverse Reactions: Allergies Allergy/AdvReac Type Severity Reaction Status Date / Time allopurinol Allergy See Comment Verified 03/31/18 07:20 PMH/Surg Hx/FS Hx/Imm Hx Endocrine/Hematology History: Denies: Hx Anticoagulant Therapy Cardiovascular History: Reports: Hx Hypertension - lisinopril? Respiratory History: Denies: Hx Asthma, Hx Bronchopulmonary Dysplasia, Hx Chronic Bronchitis, Hx Chronic Obstructive Pulmonary Disease (COPD), Hx Cystic Fibrosis, Hx Lung Cancer , Hx Pleural Effusion, Hx Pneumonia, Hx Pulmonary Edema, Hx Pulmonary Embolism, Hx Seasonal Allergies, Hx Sleep Apnea, Other Respiratory Problems/Disorders GI History: Reports: Hx Gastroesophageal Reflux Disease, Hx Ulcer - possibly has had in past, pt unclear Denies: Hx Cirrhosis, Hx Gall Bladder Disease Musculoskeletal History: Reports: Hx Gout Sensory History: Reports: Hx Contacts or Glasses Denies: Hx Hearing Aid Opthamlomology History: Reports: Hx Contacts or Glasses Psychiatric History: Reports: Hx Anxiety, Hx Depression, Hx Panic Disorder, Hx Community Mental Health Tx, Hx Bipolar Disorder, Hx Substance Abuse - alcohol Denies: Hx Attention Deficit Hyperactivity Disorder, Hx Eating Disorder, Hx Post Traumatic Stress Disorder, Hx Schizophrenia, Hx Suicide Attempt, Hx of Violent Episodes Against Others, Other Psychiatric Issues/Disorders Comment Only: Hx Inpatient Treatment - did not wish to disclose - Cancer History Cancer Type, Location and Year: None - Surgical History Surgery Procedure, Year, and Place: None Infectious Disease History: No Infectious Disease History: Denies: Traveled Outside the [place] in Last 30 Days - [place] - Family History Known Family History: Positive: Diabetes - father - Social History Alcohol Use: Daily Alcohol Amount: 100oz of 8% beer/sometimes vodka Hx Substance Use: Yes Substance Use Type: Reports: Cocaine, Marijuana Substance Use Comment - Amount & Last Used: crack cocaine Hx Tobacco Use: Yes - pt states he's a someday smoker Smoking Status (MU): Light Every Day Tobacco Smoker Review of Systems Negative: Fever Positive: Abdominal Pain - epigastric, for 3 days. Negative: Vomiting All Other Systems Reviewed And Are Negative: Yes Physical Exam - Summary Physical Exam Summary: VITAL SIGNS: Reviewed. GENERAL: Patient is a well-developed and nourished MALE who is lying comfortable in the stretcher. Patient is not in any acute respiratory distress. I can smell alcohol on his breath. HEAD AND FACE: No signs of trauma. No ecchymosis, hematomas or skull depressions. No sinus tenderness. EYES: PERRLA, EOMI x 2, No injected conjunctiva, no nystagmus. EARS: Hearing grossly intact. Ear canals and tympanic membranes are within normal limits. MOUTH: Oropharynx within normal limits. NECK: Supple, trachea is midline, no adenopathy, no JVD, no carotid bruit, no c- spine tenderness, neck with full ROM. CHEST: Symmetric, no tenderness at palpation LUNGS: Clear to auscultation bilaterally. No wheezing or crackles. CVS: Regular rate and rhythm, S1 and S2 present, no murmurs or gallops appreciated. ABDOMEN: Soft, non-tender. Distended. No rebound, no guarding, and no masses palpated. Bowel sounds are normal. EXTREMITIES: FROM in all major joints, no edema, no cyanosis or clubbing. NEURO: Alert and oriented x 3. No acute neurological deficits. Speech is normal and follows commands. SKIN: Dry and warm Triage Information Reviewed: Yes Vital Signs On Initial Exam: Initial Vitals Temp Pulse Resp BP Pulse Ox 97.8 F 92 18 144/85 98 07/17/18 04:05 07/17/18 04:05 07/17/18 04:05 07/17/18 04:05 07/17/18 04:05 Vital Signs Reviewed: Yes Diagnostics - Vital Signs Vital Signs Temp Pulse Resp BP Pulse Ox 07/17/18 04:05 97.8 F 92 18 144/85 98 - Laboratory Result Diagrams: 07/17/18 04:33 07/17/18 04:33 Lab Statement: Any lab studies that have been ordered have been reviewed, and results considered in the medical decision making process. Re-Evaluation - Re-Evaluation 1 Re-Evaluation Time: 06:20 Change: Improved Comment: Alert, oriented, x3, walking with steady gait, asking for a bus pass to leave. Pt is safe to be d/c at this time. Abdominal Pain Male Course/Dx - Course Course Of Treatment: This patient is a 57 year old M brought in by ambulance to [facility] with a chief complaint of epigastric abdominal pain since 3 days ago. At 06:20, the patient was asking for a bus pass to leave. He was alert, oriented, x3, walking with steady gait. Pt was safe and could be d/c at the time with dx of alcohol intoxication and abdominal pain. - Diagnoses Provider Diagnoses: Alcohol intoxication, Abdominal pain Discharge - Sign-Out/Discharge Documenting (check all that apply): Patient Departure - D/C home Patient Received Moderate/Deep Sedation with Procedure: No - Discharge Plan Condition: Stable Disposition: HOME Patient Education Materials: Alcohol Intoxication (ED), Abdominal Pain (ED) Referrals: Jhon Talley MD [Primary Care Provider] - 3 Days Additional Instructions: Follow up with your PCP in 3 days. PLEASE RETURN TO THE ED IMMEDIATELY FOR WORSENING OR CONCERNING SYMPTOMS. - Attestation Statements Document Initiated by Scribe: Yes Documenting Scribe: Aníbal Sanchez Provider For Whom Scribe is Documenting (Include Credential): Bakari Harris MD Scribe Attestation: Aníbal Will, scribed for Bakari Harris MD on 07/17/18 at 0624. Status of Scribe Document: Ready
[2018-07-17 04:44] LABS: ABS Basophils 0.1 10^3/ul (0-0.2); ABS Eosinophils 0.1 10^3/ul (0-0.6); ABS Lymphocytes 1.8 10^3/ul (1.0-4.8); ABS Monocytes 0.9 10^3/ul (0-0.8); ABS Neutrophils 3.6 10^3/ul (1.5-7.7); ABS Nucleated RBC 0 10^3/ul; Eosinophil % 2.1 %; Hematocrit 30 % (36-46); Hemoglobin 9.4 g/dL (14.0-18.0); Lymphocyte % 27.4 %; Mean Corpuscular HGB Conc 32 g/dL (31-36); Mean Corpuscular Hemoglobin 29 pg (27-31); Mean Corpuscular Volume 91 fL (80-94); Mean Platelet Volume 7.1 fL (7.4-10.4); Nucleated Red Blood Cells % 0; Platelet Count 485 10^3/uL (150-450); Red Blood Count 3.23 10^6 /uL (4.18-5.48); Red Cell Distribution Width 18 % (10.5-15); White Blood Count 6.5 10^3/uL (3.5-10.8)
[2018-07-17 04:49] LABS: INR 0.94 (0.77-1.02)
[2018-07-17 04:58] LABS: Albumin 4.2 g/dL (3.2-5.2); Albumin/Globulin Ratio 1.2 (1-3); BUN/Creatinine Ratio 19.8 (8-20); C Reactive Protein 22.61 mg/L (<8.01); Calcium 9.2 mg/dL (8.6-10.3); EGFR African American 74.3 (>60); EGFR Non-African American 61.4 (>60); Globulin 3.4 g/dL (2-4); Magnesium 1.8 mg/dL (1.9-2.7); Potassium 4.4 mmol/L (3.5-5.0); Total Bilirubin 0.3 mg/dL (0.2-1.0); Total Protein 7.6 g/dL (6.4-8.9)
[2018-07-17 06:27] VITALS: BP 144/87
== END 2018-07-17 06:25 | disposition home or self-care (01) ==
LOC: ED 04:01
DX: R10.13 Epigastric pain (principal); F10.129 Alcohol abuse with intoxication, unspecified; F17.210 Nicotine dependence, cigarettes, uncomplicated
CPT/HCPCS: 36415; 80053; 80320; 82150; 83690; 83735; 85025; 85610; 85730; 86140; 99282; G0480

== ENCOUNTER 2018-08-08 15:45 | Emergency (ER) | payer MEDICARE, MEDICAID ==
--- NOTE | 2018-08-08 16:56 | ED ---
Upper Extremity Pain - HPI Summary HPI Summary: A 57 y/o M presents to ED c/o R hand pain onset 4 months ago and still present. He states hitting a wall at that time. Pain is 10 out of 10 and described as aching. Alleviating factors: ETOH. 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 Pt is afebrile in ED. - History of Current Complaint Chief Complaint: EDExtremityUpper Stated Complaint: HAND INJURY NC PT Time Seen by Provider: 08/08/18 16:46 Hx Obtained From: Patient Mechanism Of Injury: Direct Blow - hit wall Onset/Duration: Started Weeks Ago, Traumatic, Still Present Timing: Constant Severity Currently: Severe Pain Location: Hand - R Alleviating Factor(s): Other - ETOH - Allergies/Home Medications Allergies/Adverse Reactions: Allergies Allergy/AdvReac Type Severity Reaction Status Date / Time allopurinol Allergy See Comment Verified 08/08/18 15:58 PMH/Surg Hx/FS Hx/Imm Hx Previously Healthy: No Endocrine/Hematology History: Denies: Hx Anticoagulant Therapy Cardiovascular History: Reports: Hx Hypertension - lisinopril? Respiratory History: Denies: Hx Asthma, Hx Bronchopulmonary Dysplasia, Hx Chronic Bronchitis, Hx Chronic Obstructive Pulmonary Disease (COPD), Hx Cystic Fibrosis, Hx Lung Cancer , Hx Pleural Effusion, Hx Pneumonia, Hx Pulmonary Edema, Hx Pulmonary Embolism, Hx Seasonal Allergies, Hx Sleep Apnea, Other Respiratory Problems/Disorders GI History: Reports: Hx Gastroesophageal Reflux Disease, Hx Ulcer - possibly has had in past, pt unclear Denies: Hx Cirrhosis, Hx Gall Bladder Disease Musculoskeletal History: Reports: Hx Gout Sensory History: Reports: Hx Contacts or Glasses Denies: Hx Hearing Aid Opthamlomology History: Reports: Hx Contacts or Glasses Psychiatric History: Reports: Hx Anxiety, Hx Depression, Hx Panic Disorder, Hx Community Mental Health Tx, Hx Bipolar Disorder, Hx Substance Abuse - alcohol Denies: Hx Attention Deficit Hyperactivity Disorder, Hx Eating Disorder, Hx Post Traumatic Stress Disorder, Hx Schizophrenia, Hx Suicide Attempt, Hx of Violent Episodes Against Others, Other Psychiatric Issues/Disorders Comment Only: Hx Inpatient Treatment - did not wish to disclose - Cancer History Cancer Type, Location and Year: None - Surgical History Surgery Procedure, Year, and Place: None Infectious Disease History: No Infectious Disease History: Denies: Traveled Outside the [place] in Last 30 Days - Family History Known Family History: Positive: Diabetes - father - Social History Occupation: Unemployed Lives: Alone Alcohol Use: Daily Alcohol Amount: 100oz of 8% beer/sometimes vodka Hx Substance Use: Yes Substance Use Type: Reports: Cocaine, Marijuana Substance Use Comment - Amount & Last Used: crack cocaine Hx Tobacco Use: Yes - pt states he's a someday smoker Smoking Status (MU): Light Every Day Tobacco Smoker Review of Systems Negative: Fever Musculoskeletal: Other - pos: R hand pain All Other Systems Reviewed And Are Negative: Yes Physical Exam - Summary Physical Exam Summary: Appearance: The patient is well-nourished in no acute distress and in no acute pain. Skin: The skin is warm and dry and skin color reflects adequate perfusion. HEENT: The head is normocephalic and atraumatic. The pupils are equal and reactive. The conjunctivae are clear and without drainage. Nares are patent and without drainage. Mouth reveals moist mucous membranes and the throat is without erythema and exudate. The external ears are intact. The ear canals are patent and without drainage. The tympanic membranes are intact. Neck: The neck is supple with full range of motion and non-tender. There are no carotid bruits. There is no neck vein distension. Respiratory: Chest is non-tender. Lungs are clear to auscultation and breath sounds are symmetrical and equal. Cardiovascular: Heart is regular rate and rhythm. There is no murmur or rub auscultated. There is no peripheral edema and pulses are symmetrical and equal. Abdomen: The abdomen is soft and non-tender. There are normal bowel sounds heard in all four quadrants and there is no organomegaly palpated. Musculoskeletal: There is no back tenderness noted. Extremities are non-tender with full range of motion EXCEPT there is tenderness to palpation diffusely on R hand. There is good capillary refill. There is no peripheral edema or calf tenderness elicited. Neurological: Patient is alert and oriented to person, place and time. The patient has symmetrical motor strength in all four extremities. Cranial nerves are grossly intact. Deep tendon reflexes are symmetrical and equal in all four extremities. Psychiatric: The patient has an appropriate affect and does not exhibit any anxiety or depression. Triage Information Reviewed: Yes Vital Signs On Initial Exam: Initial Vitals Temp Pulse Resp BP Pulse Ox 99.0 F 112 16 138/81 98 08/08/18 15:53 08/08/18 15:53 08/08/18 15:53 08/08/18 15:53 08/08/18 15:53 Vital Signs Reviewed: Yes Diagnostics - Vital Signs Vital Signs Temp Pulse Resp BP Pulse Ox 08/08/18 15:53 99.0 F 112 16 138/81 98 - Laboratory Lab Statement: Any lab studies that have been ordered have been reviewed, and results considered in the medical decision making process. - Radiology R HAND Radiology Interpretation Completed By: Radiologist Summary of Radiographic Findings: IMPRESSION: No radiographically apparent acute fracture or other abnormality other than possible contractures involving the small finger and thumb. Please correlate to physical examination. ED provider has reviewed this report. Course/Dx - Course Course Of Treatment: Mr. Rodrigues was found to have likely had an old fracture of his distal fifth metacarpal. This perhaps is been aggravated recently as this is the location of his pain. I recommended Geronimo wrap and follow-up with his PCP. - Diagnoses Provider Diagnoses: Boxer's fracture with routine healing Discharge - Sign-Out/Discharge Documenting (check all that apply): Patient Departure - D/C Patient Received Moderate/Deep Sedation with Procedure: No - Discharge Plan Condition: Stable Disposition: HOME Patient Education Materials: Boxer Fracture (ED) Referrals: Jhon Talley MD [Primary Care Provider] - Eleazar Christensen MD [Medical Doctor] - 1 Week Additional Instructions: Please return to the ED if you experience new or worsening symptoms. Follow up with your primary care provider in 2-3 days. Follow up with sanju Aleman, within the next week. Use an Geronimo wrap until you see the orthopedist. I believe you aggravated an already healed boxer's fracture in your hand. - Billing Disposition and Condition Condition: STABLE Disposition: Home - Attestation Statements Document Initiated by Scribe: Yes Documenting Scribe: Dutch James Provider For Whom Scribe is Documenting (Include Credential): Dr. Rajan Landon MD Scribe Attestation: I, jackie Arguetaed for Dr. Rajan Landon MD on 08/08/18 at 1825. Scribe Documentation Reviewed: Yes Provider Attestation: The documentation as recorded by the Dutch christensen accurately reflects the service I personally performed and the decisions made by me, Dr. Rajan Landon MD Status of Scribe Document: Viewed
[2018-08-08 17:36] VITALS: BP 122/97
== END 2018-08-08 17:35 | disposition home or self-care (01) ==
LOC: ED 15:45
DX: S62.91XD Unspecified fracture of right hand, subsequent encounter for fracture with routine healing (principal); W22.09XD Striking against other stationary object, subsequent encounter; I10 Essential (primary) hypertension; K21.9 Gastro-esophageal reflux disease without esophagitis; M10.9 Gout, unspecified; F41.9 Anxiety disorder, unspecified; F31.9 Bipolar disorder, unspecified; F17.210 Nicotine dependence, cigarettes, uncomplicated; Z88.8 Allergy status to other drugs, medicaments and biological substances
CPT/HCPCS: 99282

== ENCOUNTER 2018-10-30 20:41 | Emergency (ER) | payer MEDICARE, MEDICAID ==
--- NOTE | 2018-10-30 21:28 | ED ---
Lower Extremity - HPI Summary HPI Summary: Patient is a 57 y/o M presenting to ED with complaints of pain at the top of left knee for the past three weeks. He reports Hx of gout, but states that present Sx are dissimilar to his presentations of gout. He states that the knee is not hot to touch. Patient denies recent injury. Patient states that he had woken up in the morning three weeks ago with the pain. Patient reports that he typically has gout in his toes. He denies recent sports activity, overuse activity. No fevers or chills. Per triage, "pt states EtoH use tonight. Pt has been using OTC meds not working". - History of Current Complaint Chief Complaint: EDExtremityLower Stated Complaint: RIGHT KNEE IS FULL OF PAIN PER PT Time Seen by Provider: 10/30/18 21:07 Hx Obtained From: Patient Mechanism Of Injury: Other - no TURNER reported Onset of Pain: Days - 3 weeks, Prior to Arrival Onset/Duration: Still Present - 3 weeks Severity Currently: Severe Pain Intensity: 8 Pain Scale Used: 0-10 Numeric Timing: Constant, Lasting Weeks - 3 weeks Location: Is Discrete @ - top of left knee Associated Signs And Symptoms: Positive: Knee Pain - left - Allergies/Home Medications Allergies/Adverse Reactions: Allergies Allergy/AdvReac Type Severity Reaction Status Date / Time allopurinol Allergy See Comment Verified 08/08/18 15:58 PMH/Surg Hx/FS Hx/Imm Hx Endocrine/Hematology History: Denies: Hx Anticoagulant Therapy Cardiovascular History: Reports: Hx Hypertension - lisinopril? Respiratory History: Denies: Hx Asthma, Hx Bronchopulmonary Dysplasia, Hx Chronic Bronchitis, Hx Chronic Obstructive Pulmonary Disease (COPD), Hx Cystic Fibrosis, Hx Lung Cancer , Hx Pleural Effusion, Hx Pneumonia, Hx Pulmonary Edema, Hx Pulmonary Embolism, Hx Seasonal Allergies, Hx Sleep Apnea, Other Respiratory Problems/Disorders GI History: Reports: Hx Gastroesophageal Reflux Disease, Hx Ulcer - possibly has had in past, pt unclear Denies: Hx Cirrhosis, Hx Gall Bladder Disease Musculoskeletal History: Reports: Hx Gout Sensory History: Reports: Hx Contacts or Glasses Denies: Hx Hearing Aid Opthamlomology History: Reports: Hx Contacts or Glasses Psychiatric History: Reports: Hx Anxiety, Hx Depression, Hx Panic Disorder, Hx Community Mental Health Tx, Hx Bipolar Disorder, Hx Substance Abuse - alcohol Denies: Hx Attention Deficit Hyperactivity Disorder, Hx Eating Disorder, Hx Post Traumatic Stress Disorder, Hx Schizophrenia, Hx Suicide Attempt, Hx of Violent Episodes Against Others, Other Psychiatric Issues/Disorders Comment Only: Hx Inpatient Treatment - did not wish to disclose - Cancer History Cancer Type, Location and Year: None - Surgical History Surgery Procedure, Year, and Place: None Infectious Disease History: No Infectious Disease History: Denies: Traveled Outside the [place] in Last 30 Days - Family History Known Family History: Positive: Diabetes - father - Social History Alcohol Use: Daily Alcohol Amount: 100oz of 8% beer/sometimes vodka Hx Substance Use: Yes Substance Use Type: Reports: Cocaine, Marijuana Substance Use Comment - Amount & Last Used: crack cocaine Hx Tobacco Use: Yes - pt states he's a someday smoker Smoking Status (MU): Light Every Day Tobacco Smoker Review of Systems Constitutional: Other - positive - per triage, EtOH usage Musculoskeletal: Other - positive - pain at top of left knee; negative - hot to touch of left knee, recent injury All Other Systems Reviewed And Are Negative: Yes Physical Exam - Summary Physical Exam Summary: General: Well appearing, no distress HEENT: PERRL Cardiovascular: Skin is well perfused Pulmonary: No respiratory distress, no tachypnea Abdomen: Non-distended Skin: Warm, pink, dry MSK: Tenderness and swelling near quadriceps tendon insert, able to straight leg raise. Full range of motion of the knee. No femur or dodd tenderness. No edema of the lower extremity. steady gait on ambulation Psych: Intermittently agitated Neuro: A&Ox3 Triage Information Reviewed: Yes Vital Signs On Initial Exam: Initial Vitals Temp Pulse Resp BP Pulse Ox 97.6 F 109 18 166/101 99 10/30/18 20:46 10/30/18 20:46 10/30/18 20:46 10/30/18 20:46 10/30/18 20:46 Vital Signs Reviewed: Yes Diagnostics - Vital Signs Vital Signs Temp Pulse Resp BP Pulse Ox 10/30/18 20:46 97.6 F 109 18 166/101 99 - Laboratory Lab Statement: Any lab studies that have been ordered have been reviewed, and results considered in the medical decision making process. - Radiology LEFT KNEE X-RAY Radiology Interpretation Completed By: ED Physician Summary of Radiographic Findings: Degenerative changes and likely chronic changes of the patella, no acute fracture, pending official report. Lower Extremity Course/Dx - Course Course Of Treatment: 57 -year-old male with left knee pain for several weeks, atraumatic. -Is adamant that this is not secondary to his gout. Joint is not swollen or red has full range of motion. No overlying cellulitis. Low suspicion for septic joint. Symptoms could be secondary to arthritis or quadriceps and adenopathy. XR does not show any acute fractures. Follow-up with sports medicine take Motrin as needed - Diagnoses Provider Diagnoses: Quadriceps tendinitis, Knee pain, left Discharge - Sign-Out/Discharge Documenting (check all that apply): Patient Departure - discharge Patient Received Moderate/Deep Sedation with Procedure: No - Discharge Plan Condition: Stable Disposition: HOME Patient Education Materials: Knee Pain (ED) Referrals: Jhon Talley MD [Primary Care Provider] - 3 Days Carmelo Oh MD [Medical Doctor] - 3 Days Additional Instructions: You were seen in the emergency department for left knee pain. Your x-ray showed degenerative changes and likely chronic changes of the patella, no acute fracture. If any studies were not completed at the time of discharge you will be called with the relevant results. Please follow up with your primary care doctor and sports medicine in the next 2 -3 days and return to the emergency department for worsening or concerning symptoms. It was a pleasure taking care of you today. - Billing Disposition and Condition Condition: STABLE Disposition: Home - Attestation Statements Document Initiated by Rosi: Yes Documenting Scribe: AYAZ AGUERO Provider For Whom Rosi is Documenting (Include Credential): MARK BARKER MD Scribe Attestation: I, AYAZ AGUERO, scribed for MARK BARKER MD on 10/30/18 at 2228. Scribe Documentation Reviewed: Yes Provider Attestation: The documentation as recorded by the AYAZ christensen accurately reflects the service I personally performed and the decisions made by me, MARK BARKER MD Status of Scribe Document: Viewed
[2018-10-30] MEDS ORDERED: Ketorolac INJ* 30 MG/ML 1 ML VIAL IM ONE (21:52)
[2018-10-30 22:16] VITALS: BP 143/71
--- NOTE | 2018-10-31 15:47 | PN ---
Progress Note - Progress Note Date of Service: 10/30/18 Note: Final read per radiology: IMPRESSION: #. Mild osteoarthritis. Associated small joint effusion. R1F Pt. given ortho. f.u. No change in treatment needed
== END 2018-10-30 22:15 | disposition home or self-care (01) ==
LOC: ED 20:41
DX: M76.9 Unspecified enthesopathy, lower limb, excluding foot (principal); M25.562 Pain in left knee; M17.12 Unilateral primary osteoarthritis, left knee; M25.462 Effusion, left knee; I10 Essential (primary) hypertension; Z88.8 Allergy status to other drugs, medicaments and biological substances; Z72.0 Tobacco use
CPT/HCPCS: 96372; 99281; J1885

== ENCOUNTER 2018-12-27 01:23 | Emergency (ER) | payer MEDICARE, MEDICAID ==
[2018-12-27] MEDS ORDERED: Thiamine IV 100 MG, Folic Acid IV* 1 MG, Multiple Vitamin IV ADULT* 10 ML in NS 0.9% 10... IV ONE (01:40)
[2018-12-27 02:24] LABS: ABS Basophils 0.1 10^3/ul (0-0.2); ABS Eosinophils 0.2 10^3/ul (0-0.6); ABS Lymphocytes 2.1 10^3/ul (1.0-4.8); ABS Neutrophils 2.9 10^3/ul (1.5-7.7); Eosinophil % 2.9 %; Hematocrit 28 % (42-52); Hemoglobin 9.2 g/dL (14.0-18.0); Lymphocyte % 33.2 %; Mean Corpuscular HGB Conc 33 g/dL (31-36); Mean Corpuscular Hemoglobin 31 pg (27-31); Mean Corpuscular Volume 95 fL (80-94); Mean Platelet Volume 7.1 fL (7.4-10.4); Nucleated Red Blood Cells % 0.1; Platelet Count 523 10^3/uL (150-450); Red Blood Count 2.97 10^6 /uL (4.18-5.48); Red Cell Distribution Width 19 % (10-15); White Blood Count 6.2 10^3/uL (3.5-10.8)
--- NOTE | 2018-12-27 02:25 | ED ---
Substance Abuse/Use - HPI Summary HPI Summary: This pt is a 58 y/o male presenting to [facility] via EMS for alcohol intoxication and abd pain today. Pt reports he had an upset stomach today and then went "mental." He states "my life is not right, I'm an alcoholic." Pt is requesting mental health evaluation today. When asked how much he drank today he notes "enough to get my ass in here." PMHx includes alcohol abuse, bipolar disorder. - History Of Current Complaint Chief Complaint: EDSubstanceAbuse Stated Complaint: ABD PAIN PER EMS Time Seen by Provider: 12/27/18 01:28 Hx Obtained From: Patient Onset/Duration of Drug/ETOH Abuse: Hours Ingestion History: Type/Name Of Drug - Alcohol Overdose Characteristics: Oral Timing Of Abuse: Binge Use Severity Currently: Moderate Aggravating Factor(s): Nothing Alleviating Factor(s): Nothing Associated Signs And Symptoms: Intentional Ingestion, Other: - POSITIVE: abd pain - Allergies/Home Medications Allergies/Adverse Reactions: Allergies Allergy/AdvReac Type Severity Reaction Status Date / Time allopurinol Allergy See Comment Verified 08/08/18 15:58 PMH/Surg Hx/FS Hx/Imm Hx Endocrine/Hematology History: Denies: Hx Anticoagulant Therapy Cardiovascular History: Reports: Hx Hypertension - lisinopril? Respiratory History: Denies: Hx Asthma, Hx Bronchopulmonary Dysplasia, Hx Chronic Bronchitis, Hx Chronic Obstructive Pulmonary Disease (COPD), Hx Cystic Fibrosis, Hx Lung Cancer , Hx Pleural Effusion, Hx Pneumonia, Hx Pulmonary Edema, Hx Pulmonary Embolism, Hx Seasonal Allergies, Hx Sleep Apnea, Other Respiratory Problems/Disorders GI History: Reports: Hx Gastroesophageal Reflux Disease, Hx Ulcer - possibly has had in past, pt unclear Denies: Hx Cirrhosis, Hx Gall Bladder Disease Musculoskeletal History: Reports: Hx Gout Sensory History: Reports: Hx Contacts or Glasses Denies: Hx Hearing Aid Opthamlomology History: Reports: Hx Contacts or Glasses Psychiatric History: Reports: Hx Anxiety, Hx Depression, Hx Panic Disorder, Hx Community Mental Health Tx, Hx Bipolar Disorder, Hx Substance Abuse - alcohol Denies: Hx Attention Deficit Hyperactivity Disorder, Hx Eating Disorder, Hx Post Traumatic Stress Disorder, Hx Schizophrenia, Hx Suicide Attempt, Hx of Violent Episodes Against Others, Other Psychiatric Issues/Disorders Comment Only: Hx Inpatient Treatment - did not wish to disclose - Cancer History Cancer Type, Location and Year: None - Surgical History Surgery Procedure, Year, and Place: None Infectious Disease History: No Infectious Disease History: Denies: Traveled Outside the [place] in Last 30 Days - Family History Known Family History: Positive: Diabetes - father - Social History Alcohol Use: Daily Alcohol Amount: 100oz of 8% beer/sometimes vodka Hx Substance Use: Yes Substance Use Type: Reports: Cocaine, Marijuana Substance Use Comment - Amount & Last Used: crack cocaine Hx Tobacco Use: Yes - pt states he's a someday smoker Smoking Status (MU): Light Every Day Tobacco Smoker Review of Systems - ROS Summary Review of Systems Summary: Home Medications Medication Instructions Recorded Confirmed Type Al Hydrox/Mg Hydrox/Simet LIQ* 30 ml PO Q6H PRN #1 udc 09/19/17 12/27/18 Rx [Maalox Plus*] Cyclobenzaprine TAB* [Flexeril 10 10 mg PO QID 09/29/17 12/27/18 History MG TAB*] Lisinopril TAB* [Prinivil TAB 10 20 mg PO DAILY 09/29/17 12/27/18 History MG*] traZODone TAB* [Desyrel TAB*] 100 mg PO BEDTIME 09/29/17 12/27/18 History Famotidine TAB* [Pepcid 20 MG TAB*] 20 mg PO BID #10 tab 12/02/17 12/27/18 Rx Pantoprazole TAB * [Protonix TAB*] 40 mg PO DAILY #30 tab 12/02/17 12/27/18 Rx Sucralfate [Carafate] 1 gm PO TID #30 tablet 12/02/17 12/27/18 Rx Negative: Fever, Chills Positive: Abdominal Pain Psychological: Other - POSITIVE: alcohol abuse All Other Systems Reviewed And Are Negative: Yes Physical Exam - Summary Physical Exam Summary: General: Well-developed, Thin male. Unkempt and disheveled. Patient is malodorous. No acute distress. HEENT: Normocephalic, Atraumatic. Eyes: Conjuctiva normal, PERRL. Ears: TMs within normal limits. Nares: (-) discharge, (-) erythema. Oropharynx: Clear, mucous membranes moist, (-) exudates. Neck: Soft, FROM, (-) lymphadenopathy, (-) thyromegaly, (-) JVD. Cardiovascular: Normal sinus rhythm, (-) murmur. Lungs: Clear to auscultation bilaterally (-) wheezes, (-) rales, (-) rhonchi. Abdomen: Soft, non-tender, non-distended, (-) organomegaly, normal bowel sounds. Back: (-) CVA tenderness Extremities: No edema. Skin: Warm, dry, (-) rash. Neuro: Alert and oriented x3, no focal deficits. Psychiatric: Mildly agitated. Triage Information Reviewed: Yes Vital Signs On Initial Exam: Initial Vitals Temp Pulse Resp BP Pulse Ox 98.0 F 93 22 137/80 98 12/27/18 01:30 12/27/18 01:30 12/27/18 01:30 12/27/18 01:30 12/27/18 01:30 Vital Signs Reviewed: Yes Diagnostics - Vital Signs Vital Signs Temp Pulse Resp BP Pulse Ox 12/27/18 01:30 98.0 F 93 22 137/80 98 - Laboratory Result Diagrams: 12/27/18 02:11 12/27/18 02:11 Lab Statement: Any lab studies that have been ordered have been reviewed, and results considered in the medical decision making process. Course/Dx - Course Assessment/Plan: Pt is a 58 y/o male presenting to [facility] via EMS for alcohol intoxication and abd pain today. Pt reports he had an upset stomach today and then went "mental." He states "my life is not right, I'm an alcoholic." Pt is requesting mental health evaluation today. Test results remarkable for hemoglobin of 9.2, hematocrit of 28, platelet count of 523, ammonia of 99, serum alcohol of 242. Patient will be signed out to Dr. Love at shift change pending sobriety. - Diagnoses Provider Diagnoses: Alcohol intoxication Discharge ED - Sign-Out/Discharge Documenting (check all that apply): Sign-Out Patient Signing out patient TO: Josué Love - pending sobriety Patient Received Moderate/Deep Sedation with Procedure: No - Discharge Plan Condition: Stable Referrals: Jhon Talley MD [Primary Care Provider] - - Billing Disposition and Condition Condition: STABLE - Attestation Statements Document Initiated by Scribe: Yes Documenting Scribe: Hanny Hawkins Provider For Whom Scribe is Documenting (Include Credential): Dr. Fouzia Thapa MD Scribe Attestation: I, Hanny Hawkins, scribed for Dr. Fouzia Thapa MD on 12/27/18 at 0620. Scribe Documentation Reviewed: Yes Provider Attestation: The documentation as recorded by the scribe, Hanny Hawkins accurately reflects the service I personally performed and the decisions made by me, Dr. Fouzia Thapa MD Status of Scribe Document: Viewed
[2018-12-27 02:29] LABS: INR 1.03 (0.82-1.09)
[2018-12-27 02:36] LABS: Albumin 4.5 g/dL (3.2-5.2); Albumin/Globulin Ratio 1.4 (1-3); BUN/Creatinine Ratio 21.1 (8-20); C Reactive Protein 4.11 mg/L (<8.01); Calcium 9.2 mg/dL (8.6-10.3); EGFR African American 66.4 (>60); EGFR Non-African American 54.8 (>60); Globulin 3.3 g/dL (2-4); Potassium 4.6 mmol/L (3.5-5.0); Total Bilirubin 0.3 mg/dL (0.2-1.0); Total Protein 7.8 g/dL (6.4-8.9)
--- OUTSIDE RECORDS SUMMARY | 2018-12-27 03:37 | XMS REPORT | Continuity of Care Document ---
:1960 External Reference #:[id number] Author Name Amanda Bowers DO (transmitted by agent of provider Adelina Musa) Address [address] [place] [address] Care Team Providers Name Role Phone Care [facility] - Care Team Information Certified Ophthalmic Assistant Clinic/Center Problems Active Problems Provider Date Pain in left arm Jhon Talley MD Onset: 10/19/2017 Screening for malignant neoplasm of colon Jhon Talley MD Onset: 10/19/2017 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 Jhon Talley MD Onset: 10/19/2017 Gout Jhon Talley MD Onset: 10/19/2017 Essential hypertension Jhon Talley MD Onset: 10/19/2017 Bipolar disorder Jhon Talley MD Onset: 10/19/2017 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 Pain in limb Jhon Talley MD Onset: 10/19/2017 Social History Type Date Description Comments Sex Unknown Tobacco Use Start: Unknown Light tobacco smoker (10 or fewer cigarettes/day) Smoking Status Reviewed: 11/22/18 Light tobacco smoker (10 or fewer cigarettes/day) Allergies, Adverse Reactions, Alerts Active Allergies Reaction Severity Comments Date Allopurinol 10/17/2017 Medications Active Medications SIG Qnty Indications Ordering Date Provider Blood Pressure Cuff take blood pressure 1units I10 Amanda Bowers, 2018 daily DO Misc Mucinex twice a day as 30tabs Amanda Bowers, 09/19/2018 600mg Tablets needed for DO ER 12HR congestion Indomethacin 1 capsule by mouth 60caps Amanda Bowers, 50mg three times a day DO Capsules as needed Maalox Plus 30 milliliters Unknown every 6 hours as [phone] needed indigestion, Suspension Folic Acid 1 by mouth every 30tabs [facility], 1mg day DO Tablets Famotidine 1 by mouth every 30tabs [facility], 20mg day DO Tablets Thiamine HCL 1 by mouth every 30tabs [facility], 100mg day DO Tablets Lisinopril 1 by mouth every 30tabs [facility], 20mg day DO Tablets Hydroxyzine HCL 1 tablets by mouth 30tabs [facility], 25mg daily as needed for DO Tablets anxiety History Medications Prednisone 1 by mouth 5tabs M10.9 [facility], 08/15/2018 - 50mg Tablets every day DO 11/22/2018 Immunizations Description No Information Available Vital Signs Date Vital Result Comment 11/22/2018 8:53am Height 71 inches 5'11" Weight 164.56 lb Heart Rate 85 /min BP Systolic 165 mmHg BP Diastolic 86 mmHg Body Temperature 97.4 F O2 % BldC Oximetry 97 % BMI (Body Mass Index) 22.9 kg/m2 08/15/2018 8:48am Weight 172.00 lb Heart Rate 76 /min BP Systolic 158 mmHg BP Diastolic 84 mmHg Respiratory Rate 16 /min Body Temperature 97.4 F Pain Level 7 Results Test Date Facility Test Result H/L Range Note CBC Auto 07/17/2018 [facility] White Blood 6.5 10^3/uL Normal 3.5-10.[address] [place] [address] [phone] Red Blood Count 3.23 10^6/uL Low 4.18-5.48 Hemoglobin 9.4 g/dL Low 14.0-18.0 Hematocrit 30 % Low 36-46 Mean Corpuscular Volume 91 fL Normal 80-94 Mean Corpuscular Hemoglobin 29 pg Normal 27-31 Mean Corpuscular HGB Conc 32 g/dL Normal 31-36 Red Cell Distribution Width 18 % High 10.5-15 Platelet Count 485 10^3/uL High 150-450 Mean Platelet Volume 7.1 fL Low 7.4-10.4 Abs Neutrophils 3.6 10^3/uL Normal 1.5-7.7 Abs Lymphocytes 1.8 10^3/uL Normal 1.0-4.8 Abs Monocytes 0.9 10^3/uL High 0-0.8 Abs Eosinophils 0.1 10^3/uL Normal 0-0.6 Abs Basophils 0.1 10^3/uL Normal 0-0.2 Abs Nucleated RBC 0 10^3/uL Granulocyte % 55.2 % Lymphocyte % 27.4 % Monocyte % 14.0 % Eosinophil % 2.1 % Basophil % 1.3 % Nucleated Red Blood Cells % 0 Comp Metabolic 07/17/2018 [facility] Sodium 135 mmol/L Normal 135-145 Panel [address] [place] [address] [phone] Potassium 4.4 mmol/L Normal 3.5-5.0 Chloride 105 mmol/L Normal 101-111 Co2 Carbon Dioxide 23 mmol/L Normal 22-32 Anion Gap 7 mmol/L Normal 2-11 Glucose 103 mg/dL High 70-100 Blood Urea Nitrogen 24 mg/dL Normal 6-24 Creatinine 1.21 mg/dL High 0.67-1.17 BUN/Creatinine Ratio 19.8 Normal 8-20 Calcium 9.2 mg/dL Normal 8.6-10.3 Total Protein 7.6 g/dL Normal 6.4-8.9 Albumin 4.2 g/dL Normal 3.2-5.2 Globulin 3.4 g/dL Normal 2-4 Albumin/Globulin Ratio 1.2 Normal 1-3 Total Bilirubin 0.30 mg/dL Normal 0.2-1.0 Alkaline Phosphatase 108 U/L High 34-104 Alt 78 U/L High 7-52 Ast 52 U/L High 13-39 Egfr Non- 61.4 >60 Egfr 74.3 >60 1 Laboratory test 07/17/2018 [facility] Magnesium 1.8 mg/dL Low 1.9-2.7 finding [address] [place] [address] [phone] Amylase 75 U/L Normal 29-103 Lipase 29 U/L Normal 11.0-82.0 C Reactive Protein 22.61 mg/L High <8.01 Alcohol 280 mg/dL High <10 Inr/Protime 07/17/2018 [facility] Inr 0.94 Normal 0.77-1.02 [address] [facility] [place] [place] [address] [phone] Laboratory test 07/17/2018 [facility] Partial 40.0 High 26.0- 36.[address] [place] [address] Time PTT [phone] 1 Because ethnic data is not always [...] (or dialysis) Procedures Description No Information Available Medical Devices Description No Information Available Encounters Type Date Location Provider Dx Diagnosis Office Visit 08/15/2018 DO Not Use Care Brady Matt0.9 Gout, unspecified 8:40a [facility] I10 Essential (primary) hypertension Assessments Date Code Description Provider 11/22/2018 M10.9 Gout, unspecified Amanda Bowers DO 11/22/2018 I10 Essential (primary) hypertension Amanda Bowers DO 11/22/2018 B18.2 Chronic viral hepatitis C Amanda Bowers DO 11/22/2018 Z12.11 Encounter for screening for malignant neoplasm Amanda Bowers DO of colon 08/15/2018 M10.9 Gout, unspecified Amanda Bowers DO 08/15/2018 I10 Essential (primary) hypertension Amanda Bowers DO Plan of Treatment Future Appointment(s):12/13/2018 8:00 am - Amanda Bowers DO at [facility] Internal Medicine - [address]/22/2018 - Amanda Bowers DOM10.9 Gout, [id number] Essential (primary) hypertensionNew Medication:Blood Pressure Cuff - take blood pressure dailyFollow up:1-2 ohrpdX14.2 Chronic viral hepatitis CNew Labs: CBC Auto Diff, Ordered: 11/22/18Referral:Loki Garcia MD, Infectious BuufkrpbA35.11 Encounter for screening for malignant neoplasm of colonComments: COLOGUARD Functional Status Description No Information Available Mental Status Description No Information Available Referrals Refer to Dr Reason for Referral Status Appt Date Loki Garcia MD Age appropriate colon cancer screeeing Sent (colonoscopy) [address] [place] [address] [place] [address] [phone]
--- NOTE | 2018-12-27 07:22 | ED ---
Progress - Progress Note Progress Note: The patient is a sign-out from Dr. Fouzia Thapa MD, to Dr. Josué Love MD, at change of shift at 0700 on 12/27/18, pending sobriety. Re-Evaluation - Re-Evaluation 1st re-eval Re-Evaluation Time: 07:20 Change: Unchanged Comment: Pt is sleeping comfortably. Easily rousable to voice. No complaints at this time. Course/Dx - Course Course Of Treatment: This patient is a 58-year-old male who was signed out by Dr. Thapa at shift change requesting to discharge the patient when he becomes sober. The patient was discharged home, the patient is alert and oriented 3, and sober. Approximately 9 AM the patient is alert and oriented 3. The patient is sober. Patient has no other complaints. He is eating and drinking without any nausea and vomiting. The patient is walking with a good steady walk. Patient denies any suicidal or homicidal ideation. - Diagnoses Provider Diagnoses: Alcohol intoxication Discharge ED - Sign-Out/Discharge Documenting (check all that apply): Patient Departure, Receiving Sign-Out Receiving patient FROM: Fouzia Thapa - Patient is a sign-out from Dr. Fouzia Thapa MD, at change of shift at 0700 on 12/27/18, pending sobriety. Patient Received Moderate/Deep Sedation with Procedure: No - Discharge Plan Condition: Stable Disposition: HOME Referrals: Jhon Talley MD [Primary Care Provider] - Additional Instructions: Please follow up with your primary care provider within the next 2-3 days. Return to the emergency department with any new or worsening symptoms. - Billing Disposition and Condition Condition: STABLE Disposition: Home - Attestation Statements Document Initiated by Scribe: Yes Documenting Scribe: Christina Lamar Provider For Whom Rosi is Documenting (Include Credential): Dr. Josué Love MD. Scribe Attestation: Valdez Will Kathryn O'Connor, scribed for Dr. Josué Love MD. on at 1119. Scribe Documentation Reviewed: Yes Provider Attestation: The documentation as recorded by the Valdez christensen Kathryn O' Connor accurately reflects the service I personally performed and the decisions made by me, Dr. Josué Love MD. Status of Scribe Document: Viewed
[2018-12-27 10:15] VITALS: BP 117/59
== END 2018-12-27 08:30 | disposition home or self-care (01) ==
LOC: ED 01:23
DX: F10.929 Alcohol use, unspecified with intoxication, unspecified (principal); I10 Essential (primary) hypertension; K21.9 Gastro-esophageal reflux disease without esophagitis; F41.9 Anxiety disorder, unspecified; F31.9 Bipolar disorder, unspecified; F17.200 Nicotine dependence, unspecified, uncomplicated; Z79.899 Other long term (current) drug therapy; Z88.8 Allergy status to other drugs, medicaments and biological substances
CPT/HCPCS: 36415; 80053; 80320; 82140; 82150; 83605; 83690; 85025; 85610; 86140; 99282; G0480; J3411